=== PATIENT | male | born 1970 | race Caucasian/White ===

== ENCOUNTER 2019-02-27 18:06 | Observation (INO) ==
[2019-02-27] MEDS ORDERED: ASPIRIN CHEW 324 MG PO STA (18:38)
[2019-02-27 18:58] LABS: Basophils # (auto) 0.02 K/uL (0-0.2); Basophils % (auto) 0.3 %; Eosinophils # (auto) 0.06 K/uL (0-0.5); Eosinophils % (auto) 0.8 %; Hemoglobin 15.1 g/dL (14.0-18.0); Immature Granulocytes # (auto) 0.02 K/uL (0.00-0.02); Immature Granulocytes % (auto) 0.3 %; Lymphocytes % (auto) 19.6 %; Mean Corpuscular Hgb Conc 36.8 g/dL (32-36); Mean Corpuscular Volume 86.1 fL (80-100); Mean Platelet Volume 8.8 fL (7.4-10.4); Monocytes # (auto) 0.73 K/uL (0.11-0.59); Monocytes % (auto) 10.2 %; Neutrophils # (auto) 4.92 K/uL (1.4-6.5); Neutrophils % (auto) 68.8 %; Platelet Count 159 K/uL (130-400); RDW Standard Deviation 41.1 fL (36.4-46.3); Red Blood Count 4.76 M/uL (4.7-6.1); White Blood Count 7.15 K/uL (4.8-10.8)
[2019-02-27] MEDS ORDERED: ASPIRIN 81 MG CHEW ONE (19:03)
--- NOTE | 2019-02-27 19:03 | XRay Report ---
XR chest 1V portable HISTORY: 48 years-old Male cp acute atypical chest pain COMPARISON: Chest radiograph 02/28/2016 TECHNIQUE: Portable AP view the chest FINDINGS: Cardiac silhouette is enlarged, unchanged. No pneumothorax, pleural effusion, focal airspace consolid ation or overt pulmonary edema. Bones of the chest appear grossly intact. Mild spondylitic spurring o f the thoracic spine. IMPRESSION: Cardiomegaly without acute process. The above report was generated using voice recognition software. It may contain grammatical, syntax o r spelling errors. Electronically signed by: Walker Deleon M.D. 02/27/2019 7:02 PM
[2019-02-27 19:25] LABS: Alanine Aminotransferase 43 U/L (12-78); Albumin Level 3.9 gm/dl (3.4-5.0); Aspartate Aminotransferase 38 U/L (15-37); BUN Creatinine Ratio 13.6 (10-20); Blood Urea Nitrogen 13 mg/dl (7-18); Calcium 9.3 mg/dl (8.5-10.1); Carbon Dioxide 29 mmol/L (21-32); Chloride 104 mmol/L (98-107); Creatinine Clr Calc Pharmacy 118.1 ml/min; Est GFR (African American) 106.7; Est GFR (Non-African American) 92.1; Glucose 101 mg/dl (70-99); Potassium 3.8 mmol/L (3.5-5.1); Sodium 138 mmol/L (136-145)
[2019-02-27 19:30] LABS: Albumin Globulin Ratio 1.1 (0.9-2); Alkaline Phosphatase 87 U/L (45-117); Bilirubin,Total 0.4 mg/dl (0.2-1); Globulin 3.7 gm/dl (2.5-4.0); Total Protein 7.6 gm/dl (6.4-8.2); Troponin I < 0.015 ng/ml (0-0.045)
[2019-02-27 19:33] LABS: Appearance Urine Clear (Clear); Bacteria Urine Automated Negative (Negative); Bilirubin Urine Negative (Negative); Blood Urine 1+ (Negative); Cast Urine Automated 0 /lpf (0-5); Color Urine Yellow; Glucose Urine UA Negative (Negative); Ketones Urine Negative (Negative); Leukocyte Esterase Urine Negative (Negative); Nitrite Urine Negative (Negative); Protein Urine Negative (Negative); RBC Urine Automated 0-4 /hpf (0-4); Urobilinogen Urine Negative (Negative)
[2019-02-27] MEDS ORDERED: ACETAMINOPHEN 325 MG TAB PO PRN (22:28)
[2019-02-27] MEDS ORDERED: NITROGLYCERIN SL 0.4 MG/TAB TAB SL PRN (22:28)
[2019-02-27] MEDS ORDERED: ONDANSETRON INJ 2 MG/ML 2 ML VIAL IV PRN (22:28)
[2019-02-27] MEDS ORDERED: MoRPHine SULFATE 2 MG/ML CARP IV PRN (22:28)
--- NOTE | 2019-02-27 23:26 | History and Physical Report ---
DATE OF ADMISSION: 02/27/2019 CHIEF COMPLAINT: Chest pain. HISTORY OF PRESENT ILLNESS: A 48-year-old male with past medical history significant for morbid obesity, history of cellulitis in lower extremities, presents with chest pain. The patient states this pain has been going on for the last few weeks on and off, but lately has become more constant and dull aching pain in the central chest, not sure if this is radiating or not, because the pain seems to be in different places. It is more when he does some exertion but not with ambulation. Denies any headache or dizziness. No nausea. No symptoms of short of breath. He has some cough with some yellowish phlegm attributes it to his sinuses. No blurred visions. Has some sore throat from his postnasal drip. Appetite is okay. No difficulty swallowing. No abdominal pain. Normal bowel and bladder movements. No hematuria or burning micturition. No black stools. No swelling in the legs. Currently, resting comfortable and hemodynamically stable. Patient has family history significant for father and maternal grandfather had heart disease. ALLERGIES: No known drug allergies. PAST MEDICAL HISTORY: As mentioned above. PAST SURGICAL HISTORY: Bilateral carpal tunnel surgery. MEDICATIONS: Multivitamins. FAMILY HISTORY: Significant for mother had uterine cancer. Father had diabetes and heart disorder. Maternal grandfather has heart disorder. SOCIAL HISTORY: Never smoked. No alcohol use, no drug use. and lives with his and son. REVIEW OF SYMPTOMS: As per HPI. Rest of review of systems negative. PHYSICAL EXAMINATION: GENERAL: The patient is morbidly obese, not in acute distress. VITAL SIGNS: Temperature 37.1, pulse 84, respiratory rate 14, blood pressure 150/90, oxygen 93% room air. HEENT: No pallor, no icterus. Pupils equal, round, and reactive to light. NECK: No JVD, no neck masses, no carotid bruits. CARDIOVASCULAR: S1, S2 heard, regular rate and rhythm, no murmur, no gallop. RESPIRATORY SYSTEM: Normal AP diameter. No accessory muscle use. No wheezing, no crackles. ABDOMEN: Soft, bowel sounds present. Nontender. No distention. CENTRAL NERVOUS SYSTEM: Cranial nerves II-XII grossly nonfocal. EXTREMITIES: No edema, no erythema. LABS: WBC 7.15, hemoglobin 15.1, hematocrit 41, platelets 159. Sodium 138, potassium 3.8, chloride 104, bicarbonate 29, BUN 13, creatinine 0.9, serum glucose 101, calcium 9.3, total bilirubin 0.4, AST 38, ALT 43, alkaline phosphatase 87. Troponin-I less than 0.015. Lipase 57. Urinalysis is positive for some trace blood. Chest x-ray, cardiomegaly without acute process. EKG: Normal sinus rhythm with rate of 80. No acute ST changes seen. ASSESSMENT AND PLAN: This is a 48-year-old male presents with chest pain. 1. Chest pain. Initial workup is negative. Going on for the last few weeks on and off, lattely more constant and somewhat worse with exertion. Risk factors of obesity, age and family history. We will observe in tele floor. Serial cardiac enzymes, echocardiogram. Patient will be n.p.o. after midnight. Cardiology consult, possible stress test in a.m. 2. Obesity, needs counseling. We will also follow fasting lipid profile. 3. Deep vein thrombosis prophylaxis, SCDs. DISPOSITION: Observation in med/surg tele. Level 1, full code. MTDD
--- NOTE | 2019-02-28 00:21 | Emergency Department Note ---
Entered by Patricia Shearer acting as a scribe for Aftab Grimm DO History of Present Illness General Chief complaint: Abdominal Pain Stated complaint: UPPER MID ABDOMINAL PAIN Source: patient History of Present Illness Onset (ago): week(s) (several) Location: chest (center) Pain Consistency: + intermittent and + other (worsening ) Maximum Pain Intensity: 4 Current Pain Intensity: 4 Quality: + aching and + dull Relieved By: + rest Exacerbated By: + movement Associated symptoms: + shortness of breath The patient is a 48 year old male who presents to the Emergency Room with comp laints of worsening intermittent center chest pain that began several weeks prior to arrival. The patient states that his pain is exacerbated with movement and relieved with rest. He describes this pain as a dull ache. The patient states that he has shortness of breath with this pain. The patient states that this episode of chest pain today began at about 0400, 14.5 hours prior to arrival, and has been mostly constant throughout the day today. He rates this pain at a 4/10. The patient states that he has a family history of heart problems. Home Medications Home Medications Medication Instructions Recorded Confirmed Type loratadine 10 mg PO DAILY 02/27/19 02/27/19 History multivitamin [Multiple Vitamins] 1 tab PO DAILY 02/27/19 02/27/19 History Allergies Allergy/AdvReac Type Severity Reaction Status Date / Time No Known Allergies Allergy Mild Unverified 02/27/19 21:22 Past Med/Surg History Medical History Obesity (Chronic) Sepsis Surgical History History of carpal tunnel surgery (Chronic) Social History Preferred Language: Bahamian Communication Ability: Effective Utilization Review Rn Required: No Beliefs That Will Affect Care: Yazdanism Yazdanism Beliefs: Spiritism Current Living Situation: Spouse Other Information That Helps Us Care for You: No Feels Safe at Home: Yes Safety Concerns: Feels Safe At This Time Smoking Status: Never smoker Do You Dip or Chew Tobacco: No Hx Alcohol Use: No Hx Substance Use: No Review of Systems See HPI for pertinent positives & negatives. and A total of 10 systems reviewed and were otherwise negative Physical Exam Vital Signs Vital Signs - 24 hr 02/27/19 18:10 02/27/19 19:13 02/27/19 19:30 Temperature 37.1 C Temperature Source Oral Sepsis Recent Fever Within 48 Hours No Sepsis New/Unexplained Change in Mental Status No Sepsis Action Taken by Nursing No Action Required Pulse Rate 91 H 84 85 Pulse Rate from SpO2 Sensor Respiratory Rate 18 12 12 Blood Pressure 134/87 140/84 133/90 Blood Pressure Mean 102 102 104 Pulse Oximetry 95 95 95 Oxygen Delivery Method Room Air Room Air 02/27/19 20:01 02/27/19 20:50 02/27/19 21:01 Temperature Temperature Source Sepsis Recent Fever Within 48 Hours Sepsis New/Unexplained Change in Mental Status Sepsis Action Taken by Nursing Pulse Rate 84 80 82 Pulse Rate from SpO2 Sensor 80 82 Respiratory Rate 14 17 13 Blood Pressure 150/90 H 131/85 143/89 H Blood Pressure Mean 110 100 107 Pulse Oximetry 93 95 94 Oxygen Delivery Method Room Air Room Air Room Air GENERAL: Obese. Sitting up in bed. Alert, well appearing, well nourished, no distress, non-toxic EYE EXAM: normal conjunctiva OROPHARYNX: no exudate, no erythema, lips, buccal mucosa, and tongue normal and mucous membranes are moist NECK: supple, no nuchal rigidity, no adenopathy, non-tender LUNGS: Clear to auscultation. Normal chest wall mechanics HEART: no murmurs, S1 normal and S2 normal ABDOMEN: abdomen soft, non-tender, normo-active bowel sounds, no masses, no rebound or guarding. BACK: Back is symmetrical on inspection and there is no deformity, no midline tenderness, no CVA tenderness. SKIN: no rashes and no bruising UPPER EXTREMITIES: upper extremities are grossly normal. LOWER EXTREMITIES: No pitting edema. Calves are equal bilaterally. NEURO EXAM: Normal sensorium, cranial nerves II-XII intact, normal speech, no weakness of arms, no weakness of legs. Course ED COURSE: Vital signs were reviewed and showed normal. The patients medical record was reviewed The above diagnostic studies were performed and reviewed. ED treatments and interventions as stated above. 1828: The patient was evaluated in room A10. A complete history and physical examination was performed. 1938: Upon reevaluation, the patient is doing well and is still chest pain free.I discussed my findings with the patient and he understands and agrees with the treatment plan. Based on the patients age, coexisting illnesses, exam and lab findings the decision to treat as an inpatient was made. The patient remained stable while under my care. 1943: [facility] for further evaluation. Administered Medications Discontinued Medications Aspirin (Aspirin) 324 mg PO NOW STA Stop: 02/27/19 18:39 Last Admin: 02/27/19 19:05 Dose: Not Given Documented by: [id number] Aspirin (Aspirin Chew) Confirm Administered Dose 324 mg .ROUTE .STK-MED ONE Stop: 02/27/19 19:04 Last Admin: 02/27/19 19:04 Dose: 324 mg Documented by: [id number] Medical Decision Making Differential Diagnosis Differential diagnosis: Etiologies such as cardiac ischemia, aortic dissection, pulmonary embolism, pneumonia, pneumothorax, musculoskeletal, infections, pericarditis, myocarditis, esophageal rupture, gastrointestinal, as well as others were entertained. Medical Records Attestation: I reviewed the patient's medical records. Home Medications Current Medication List: was personally reviewed by me Laboratory Data Attestation: I reviewed the patient's lab results. Result diagrams: 02/27/19 18:48 02/27/19 18:48 Lab Results 02/27/19 02/27/19 02/27/19 Range/Units 18:48 18:48 19:20 WBC 7.15 (4.8-10.8) K/uL RBC 4.76 (4.7-6.1) M/uL Hgb 15.1 (14.0-18.0) g/dL Hct 41.0 L (42-52) % MCV 86.1 (80-100) fL MCH 31.7 (25-34) pg MCHC 36.8 H (32-36) g/dL RDW Std Deviation 41.1 (36.4-46.3) fL RDW Coeff of Lara 13.0 (11.5-14.5) % Plt Count 159 (130-400) K/uL MPV 8.8 (7.4-10.4) fL Immature Gran % (Auto) 0.3 % Neut % (Auto) 68.8 % Lymph % (Auto) 19.6 % [place] % (Auto) 10.2 % Eos % (Auto) 0.8 % Baso % (Auto) 0.3 % Immature Gran # (Auto) 0.02 (0.00-0.02) K/uL Neut # (Auto) 4.92 (1.4-6.5) K/uL Lymph # (Auto) 1.40 (1.2-3.4) K/uL [place] # (Auto) 0.73 H (0.11-0.59) K/uL Eos # (Auto) 0.06 (0-0.5) K/uL Baso # (Auto) 0.02 (0-0.2) K/uL Sodium 138 (136-145) mmol/L Potassium 3.8 (3.5-5.1) mmol/L Chloride 104 (98-107) mmol/L Carbon Dioxide 29 (21-32) mmol/L Anion Gap 5.0 (3-11) BUN 13 (7-18) mg/dl Creatinine 0.98 (0.6-1.4) mg/dl Est Cr Clr Drug Dosing 118.1 ml/min Est GFR ( Amer) 106.7 Est GFR (Non-Af Amer) 92.1 BUN/Creatinine Ratio 13.6 (10-20) Glucose 101 H (70-99) mg/dl Calcium 9.3 (8.5-10.1) mg/dl Total Bilirubin 0.4 (0.2-1) mg/dl AST 38 H (15-37) U/L ALT 43 (12-78) U/L Alkaline Phosphatase 87 (45-117) U/L Troponin I < 0.015 (0-0.045) ng/ml Total Protein 7.6 (6.4-8.2) gm/dl Albumin 3.9 (3.4-5.0) gm/dl Globulin 3.7 (2.5-4.0) gm/dl Albumin/Globulin Ratio 1.1 (0.9-2) Lipase 57 L (73-393) U/L Urine Color Yellow Urine Appearance Clear (Clear) Urine pH 5.0 (4.5-7.5) Ur Specific [place] 1.020 (1.000-1.030) Urine Protein Negative (Negative) Urine Glucose (UA) Negative (Negative) Urine Ketones Negative (Negative) Urine Blood 1+ H (Negative) Urine Nitrite Negative (Negative) Urine Bilirubin Negative (Negative) Urine Urobilinogen Negative (Negative) Ur Leukocyte Esterase Negative (Negative) Urine WBC (Auto) 1-5 (0-5) /hpf Urine RBC (Auto) 0-4 (0-4) /hpf U Hyaline Cast (Auto) 0 (0-5) /lpf U Epithel Cells (Auto) 5-10 H (0-5) /lpf Urine Bacteria (Auto) Negative (Negative) Imaging Data Radiologist's Impression: Radiology results as stated below per my review and the radiologist's interpretation: XR chest 1V portable HISTORY: 48 years-old Male cp acute atypical chest pain COMPARISON: Chest radiograph 02/28/2016 TECHNIQUE: Portable AP view the chest FINDINGS: Cardiac silhouette is enlarged, unchanged. No pneumothorax, pleural effusion, focal airspace consolidation or overt pulmonary edema. Bones of the chest appear grossly intact. Mild spondylitic spurring of the thoracic spine. IMPRESSION: Cardiomegaly without acute process. The above report was generated using voice recognition software. It may contain grammatical, syntax or spelling errors. Electronically signed by: Walker Deleon M.D. 02/27/2019 7:02 PM ECG Data Attestation: I personally reviewed and interpreted this ECG as follows: Indication: chest pain Rate (beats per minute): 80 Rhythm: sinus rhythm Findings: + other (normal axis); no PVC Blood Pressure Blood Pressure Findings: Elevated blood pressure Blood Pressure Disposition: elevated BP felt to be situational MDM Narrative Patient is a 48-year-old male who presents the ER referred in by PCP for p recordial chest pain which is exertional in nature associated with some shortness of breath. Labs were obtained and showed no significant leukocytosis or anemia. BMP along with LFTs bilirubin troponin and lipase was unremarkable. UA was negative. Chest x-ray was unremarkable. Patient was given aspirin. EKG was nondiagnostic. Patient does have an extensive family history with father dying at 60 and both sides of grandparents having MIs. As he was seen by the PCP did discuss case with hospice for observation. Impression & Plan Precordial chest pain Discharge Plan Visit Data *Final* Discharge Date/Time: 02/27/19 21:58 Chief Complaint: Abdominal Pain Stated Complaint: UPPER MID ABDOMINAL PAIN ED Provider: Aftab Grimm Discharge Problem: Precordial chest pain Patient Disposition: Admitted As Inpatient Discharge Instructions Interventions: ED Discharge Assessment Last Done: 02/27/19 21:58 The scribe's documentation has been prepared under my direction and personally reviewed by me in its entirety. I confirm that the note above accurately reflects all work, treatment, procedures, and medical decision making performed by me.
[2019-02-28 06:07] LABS: Basophils # (auto) 0.02 K/uL (0-0.2); Basophils % (auto) 0.3 %; Eosinophils # (auto) 0.12 K/uL (0-0.5); Eosinophils % (auto) 1.7 %; Hematocrit (blood only) 40.8 % (42-52); Hemoglobin 14.3 g/dL (14.0-18.0); Immature Granulocytes # (auto) 0.01 K/uL (0.00-0.02); Immature Granulocytes % (auto) 0.1 %; Lymphocytes % (auto) 18.5 %; Mean Corpuscular Volume 87.9 fL (80-100); Monocytes % (auto) 12.8 %; Neutrophils # (auto) 4.68 K/uL (1.4-6.5); Neutrophils % (auto) 66.6 %; Platelet Count 156 K/uL (130-400); RDW Coefficient of Variation 13.1 % (11.5-14.5); RDW Standard Deviation 41.9 fL (36.4-46.3); Red Blood Count 4.64 M/uL (4.7-6.1); White Blood Count 7.03 K/uL (4.8-10.8)
[2019-02-28 06:35] LABS: Blood Urea Nitrogen 12 mg/dl (7-18); Calcium 9.5 mg/dl (8.5-10.1); Carbon Dioxide 29 mmol/L (21-32); Chloride 105 mmol/L (98-107); Creatinine Clr Calc Pharmacy 112.8 ml/min; Est GFR (African American) 101.7; Est GFR (Non-African American) 87.7; Glucose 128 mg/dl (70-99); Potassium 3.9 mmol/L (3.5-5.1); Sodium 140 mmol/L (136-145)
[2019-02-28 06:41] LABS: Chol HDL Ratio 4; Cholesterol 110 mg/dl (0-200); HDL Cholesterol 25 mg/dl; LDL Cholesterol Calculated 31 mg/dl; Triglycerides 268 mg/dl (0-150); Troponin I < 0.015 ng/ml (0-0.045); VLDL Cholesterol 54 mg/dl
[2019-02-28] MEDS ORDERED: ASPIRIN 81 MG ECTAB PO SCH (09:00)
[2019-02-28] MEDS ORDERED: MULTIVITAMIN TAB PO SCH (09:00)
[2019-02-28] MEDS ORDERED: PERFLUTREN LIPID MICROSPHERE (DEFINITY) IV ONE (10:59)
--- NOTE | 2019-02-28 11:10 | Cardiology Consultation ---
Date of Consultation February 28, 2019 Assessment & Plan (1) Precordial chest pain: Atypical for angina. Cardiac enzymes EKGs normal. Echocardiogram with normal LV systolic function, no valvular dysfunction aortic root normal in size no pericardial effusion Stress echocardiography performed after above review: Patient exercised to 7 minutes and 10 seconds on a Shaan protocol and estimate met level 8.5 minutes and achieved 85% expected maximal heart without cardiac complaint. Heart rate blood pressure response normal Normal resting and stress EKG Normal resting and stress LV function Study negative for ischemia Symptoms noncardiac in origin (2) Obesity: Check TSH if not recently performed (3) History of carpal tunnel surgery: History of Present Illness Reason for Consultation: Chest pressure pain Requesting Physician: Dr. Hale Attending Physician: Hugh Hale MD History of Present Illness Patient is a 48-year-old male without prior cardiac history with underlying issues and including only obesity past lower extremity cellulitis and carpal tunnel disease. Patient was seen in the outpatient setting yesterday with symptoms of vague chest pressure discomfort lasting hours in duration. Not associated with dyspnea or specific exertional relationship. He denies prior history of myocardial infarction angina rheumatic fever scarlet fever renal or hepatic disease notes no history of TIA or stroke notes no acute weight loss or gain. Denies worsening edema. Is relatively sedentary about home. Takes a multivitamin is [id number] medication denies any significant pain medications or other therapies review of systems are otherwise negative Allergies Allergy/AdvReac Type Severity Reaction Status Date / Time No Known Allergies Allergy Mild Unverified 02/27/19 21:22 Home Medications Home Medications Medication Instructions Recorded Confirmed Type loratadine 10 mg PO DAILY 02/27/19 02/27/19 History multivitamin [Multiple Vitamins] 1 tab PO DAILY 02/27/19 02/27/19 History Patient History Medical History Obesity (Chronic) Sepsis Surgical History History of carpal tunnel surgery (Chronic) Social History Preferred Language: Andorran Communication Ability: Effective 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 Beliefs That Will Affect Care: Sikhism Sikhism Beliefs: Church Current Living Situation: Spouse Other Information That Helps Us Care for You: No Feels Safe at Home: Yes Safety Concerns: Feels Safe At This Time Smoking Status: Never smoker Do You Dip or Chew Tobacco: No Hx Alcohol Use: No Hx Substance Use: No Review of Systems Review of Systems: As per HPI Physical Exam Constitutional: WD/WN, vitals as above + obese Eyes: PERRL, conjunctivae normal, anicteric sclerae ENMT: external ear and nose normal, oropharynx normal Respiratory: Auscultation: + diminished lung sounds (Clear to auscultation) Cardiovascular: Rate/Rhythm: regular rate and regular rhythm Heart Sounds: normal S1 and normal S2; no gallop and no murmur Palpation: normal PMI Vessels: no JVD Extremities: no edema Gastrointestinal (Abdomen): normal bowel sounds, soft, nontender, no hepatosplenomegaly Musculoskeletal: no cyanosis or clubbing, extremities motor strength 5/5 Neurologic: PERRL, EOMI, accommodation nl, no face palsy, no dysarthria Flat affect with stoic personality Results & Data Vital Signs (Past 12 Hours) Vital Signs Temp Pulse Pulse Resp BP Pulse Ox 02/28/19 08:00 84 02/28/19 07:00 36.9 C 74 16 123/79 92 02/28/19 04:05 36.9 C 81 16 113/72 96 02/28/19 00:00 84 Laboratory Results Laboratory Results - last 24 hr 02/27/19 02/27/19 02/27/19 18:48 18:48 19:20 WBC 7.15 RBC 4.76 Hgb 15.1 Hct 41.0 L MCV 86.1 MCH 31.7 MCHC 36.8 H RDW Std Deviation 41.1 RDW Coeff of Lara 13.0 Plt Count 159 MPV 8.8 Immature Gran % (Auto) 0.3 Neut % (Auto) 68.8 Lymph % (Auto) 19.6 [place] % (Auto) 10.2 Eos % (Auto) 0.8 Baso % (Auto) 0.3 Immature Gran # (Auto) 0.02 Neut # (Auto) 4.92 Lymph # (Auto) 1.40 [place] # (Auto) 0.73 H Eos # (Auto) 0.06 Baso # (Auto) 0.02 Sodium 138 Potassium 3.8 Chloride 104 Carbon Dioxide 29 Anion Gap 5.0 BUN 13 Creatinine 0.98 Est Cr Clr Drug Dosing 118.1 Est GFR ( Amer) 106.7 Est GFR (Non-Af Amer) 92.1 BUN/Creatinine Ratio 13.6 Glucose 101 H Calcium 9.3 Magnesium Total Bilirubin 0.4 AST 38 H ALT 43 Alkaline Phosphatase 87 Troponin I < 0.015 Total Protein 7.6 Albumin 3.9 Globulin 3.7 Albumin/Globulin Ratio 1.1 Triglycerides Cholesterol LDL Cholesterol, Calc VLDL Cholesterol, Calc HDL Cholesterol Cholesterol/HDL Ratio Lipase 57 L Urine Color Yellow Urine Appearance Clear Urine pH 5.0 Ur Specific [place] 1.020 Urine Protein Negative Urine Glucose (UA) Negative Urine Ketones Negative Urine Blood 1+ H Urine Nitrite Negative Urine Bilirubin Negative Urine Urobilinogen Negative Ur Leukocyte Esterase Negative Urine WBC (Auto) 1-5 Urine RBC (Auto) 0-4 U Hyaline Cast (Auto) 0 U Epithel Cells (Auto) 5-10 H Urine Bacteria (Auto) Negative 02/27/19 02/28/19 02/28/19 23:24 05:50 05:50 WBC 7.03 RBC 4.64 L Hgb 14.3 Hct 40.8 L MCV 87.9 MCH 30.8 MCHC 35.0 RDW Std Deviation 41.9 RDW Coeff of Lara 13.1 Plt Count 156 MPV 9.0 Immature Gran % (Auto) 0.1 Neut % (Auto) 66.6 Lymph % (Auto) 18.5 [place] % (Auto) 12.8 Eos % (Auto) 1.7 Baso % (Auto) 0.3 Immature Gran # (Auto) 0.01 Neut # (Auto) 4.68 Lymph # (Auto) 1.30 [place] # (Auto) 0.90 H Eos # (Auto) 0.12 Baso # (Auto) 0.02 Sodium 140 Potassium 3.9 Chloride 105 Carbon Dioxide 29 Anion Gap 6.0 BUN 12 Creatinine 1.02 Est Cr Clr Drug Dosing 112.8 Est GFR ( Amer) 101.7 Est GFR (Non-Af Amer) 87.7 BUN/Creatinine Ratio 12.0 Glucose 128 H Calcium 9.5 Magnesium 2.0 Total Bilirubin AST ALT Alkaline Phosphatase Troponin I < 0.015 < 0.015 Total Protein Albumin Globulin Albumin/Globulin Ratio Triglycerides 268 H Cholesterol 110 LDL Cholesterol, Calc 31 VLDL Cholesterol, Calc 54 HDL Cholesterol 25 Cholesterol/HDL Ratio 4 Lipase Urine Color Urine Appearance Urine pH Ur Specific [place] Urine Protein Urine Glucose (UA) Urine Ketones Urine Blood Urine Nitrite Urine Bilirubin Urine Urobilinogen Ur Leukocyte Esterase Urine WBC (Auto) Urine RBC (Auto) U Hyaline Cast (Auto) U Epithel Cells (Auto) Urine Bacteria (Auto) Diagnostic Findings 28-FEB-2019 07:27:31 [facility] ROUTINE RETRIEVAL Normal sinus rhythm Normal ECG When compared with ECG of 27-FEB-2019 20:11, (unconfirmed) No significant change was found
[2019-02-28] MEDS ORDERED: PANTOprazole 40 MG TAB PO SCH (11:45)
--- NOTE | 2019-02-28 13:15 | Hospitalist Progress Note ---
Date of Service February 28, 2019 Assessment & Plan (1) GERD (gastroesophageal reflux disease): -discharge with pantoprazole daily -patient used to be taking proton pump inhibitors in the past and then stopped -patient has cardiac testing on this admission that did not find cardiac ischemia -patient describes the chest pain as midsternal near the gastroesophageal junction -patient has stable hemoglobin and less likely to be any bleeding duodenal ulcer. patient to follow up with primary care doctor Non Cardiac Chest pain -as per cardiology evaluation -echocardiogram with normal LV systolic function, no valvular dysfunction aortic root normal in size no pericardial effusion -Stress echocardiography performed after above review: Patient exercised to 7 minutes and 10 seconds on a Shaan protocol and estimate met level 8.5 minutes and achieved 85% expected maximal heart without cardiac complaint. Heart rate blood pressure response normal Normal resting and stress EKG Normal resting and stress LV function -Study negative for ischemia -Symptoms noncardiac in origin Obesity with BMI 41.8 -TSH normal -lipid panel reviewed and generally within normal normal parameters with mild elevations in cholesterol -would defer starting statins at this time; Patient should discuss with primary care doctor about weight loss strategies Discharge Diagnosis non cardiac chest pain, Gastroesophageal reflux disease, Obesity with BMI 41.8 Discharge to home with follow up 03/07/2019 9:20 AM Provider Prashant Looney PA-C Department [facility] Subjective patient had cardiac stress testing and did well. patient reports he does feel discomfort at midsternal near the gastroesophageal junction; reports he used to be taking proton pump inhibitors in the past and then stopped; patient denies acute blood loss. denies vomiting. denies headache or lightheadedness. his blood counts are stable. discharge plans discussed with patient and primary care doctor follow up Physical Exam Constitutional: WD/WN, vitals as above + obese Eyes: PERRL, conjunctivae normal, anicteric sclerae EOM intact bilaterally ENMT: external ear and nose normal, oropharynx normal Neck: trachea midline, no thyromegaly normal visual inspection Respiratory: normal respiratory effort, lungs clear to auscultation Cardiovascular: RRR, no murmur, no edema Gastrointestinal (Abdomen): normal bowel sounds, soft, nontender, no hepatosplenomegaly Musculoskeletal: no cyanosis or clubbing, extremities motor strength 5/5 Neurologic: PERRL, EOMI, accommodation nl, no face palsy, no dysarthria CN's II-XI intact bilaterally Psychiatric: A+Ox3, euthymic affect Results & Data Vital Signs (Past 12 Hours) Vital Signs Temp Pulse Pulse Resp BP Pulse Ox 02/28/19 11:30 37.2 C 98 H 18 131/84 92 02/28/19 08:00 84 02/28/19 07:00 36.9 C 74 16 123/79 92 02/28/19 04:05 36.9 C 81 16 113/72 96
--- NOTE | 2019-02-28 13:24 | Discharge Summary ---
Date of Service February 28, 2019 Admission HPI Per Admitting Provider CHIEF COMPLAINT: Chest pain. HISTORY OF PRESENT ILLNESS: A 48-year-old male with past medical history significant for morbid obesity, history of cellulitis in lower extremities, presents with chest pain. The patient states this pain has been going on for the last few weeks on and off, but lately has become more constant and dull aching pain in the central chest, not sure if this is radiating or not, because the pain seems to be in different places. It is more when he does some exertion but not with ambulation. Denies any headache or dizziness. No nausea. No symptoms of short of breath. He has some cough with some yellowish phlegm attributes it to his sinuses. No blurred visions. Has some sore throat from his postnasal drip. Appetite is okay. No difficulty swallowing. No abdominal pain. Normal bowel and bladder movements. No hematuria or burning micturition. No black stools. No swelling in the legs. Currently, resting comfortable and hemodynamically stable. Patient has family history significant for father and maternal grandfather had heart disease. ALLERGIES: No known drug allergies. PAST MEDICAL HISTORY: As mentioned above. PAST SURGICAL HISTORY: Bilateral carpal tunnel surgery. MEDICATIONS: Multivitamins. FAMILY HISTORY: Significant for mother had uterine cancer. Father had diabetes and heart disorder. Maternal grandfather has heart disorder. SOCIAL HISTORY: Never smoked. No alcohol use, no drug use. and lives with his and son. REVIEW OF SYMPTOMS: As per HPI. Rest of review of systems negative. Admission Exam Per Admitting Provider PHYSICAL EXAMINATION: GENERAL: The patient is morbidly obese, not in acute distress. VITAL SIGNS: Temperature 37.1, pulse 84, respiratory rate 14, blood pressure 150/90, oxygen 93% room air. HEENT: No pallor, no icterus. Pupils equal, round, and reactive to light. NECK: No JVD, no neck masses, no carotid bruits. CARDIOVASCULAR: S1, S2 heard, regular rate and rhythm, no murmur, no gallop. RESPIRATORY SYSTEM: Normal AP diameter. No accessory muscle use. No wheezing, no crackles. ABDOMEN: Soft, bowel sounds present. Nontender. No distention. CENTRAL NERVOUS SYSTEM: Cranial nerves II-XII grossly nonfocal. EXTREMITIES: No edema, no erythema. Principal Diagnosis non cardiac chest pain, Gastroesophageal reflux disease, Obesity with BMI 41.8 Discharge Exam Constitutional WD/WN, vitals as above + obese Eyes PERRL, conjunctivae normal, anicteric sclerae EOM intact bilaterally ENMT external ear and nose normal, oropharynx normal Neck trachea midline, no thyromegaly normal visual inspection Respiratory normal respiratory effort, lungs clear to auscultation Cardiovascular RRR, no murmur, no edema Gastrointestinal (Abdomen) normal bowel sounds, soft, nontender, no hepatosplenomegaly Musculoskeletal no cyanosis or clubbing, extremities motor strength 5/5 Neurologic PERRL, EOMI, accommodation nl, no face palsy, no dysarthria CN's II-XI intact bilaterally Psychiatric A+Ox3, euthymic affect Discharge Data Allergies Allergy/AdvReac Type Severity Reaction Status Date / Time No Known Allergies Allergy Mild Unverified 02/27/19 21:22 Consultations 02/27/19 20:07 ED Decision to Admit Stat 02/28/19 08:00 Consult Cardiology Routine Hospital Course (1) GERD (gastroesophageal reflux disease): -discharge with pantoprazole daily -patient used to be taking proton pump inhibitors in the past and then stopped -patient has cardiac testing on this admission that did not find cardiac ischemia -patient describes the chest pain as midsternal near the gastroesophageal junction -patient has stable hemoglobin and less likely to be any bleeding duodenal ulcer. patient to follow up with primary care doctor Non Cardiac Chest pain -as per cardiology evaluation -echocardiogram with normal LV systolic function, no valvular dysfunction aortic root normal in size no pericardial effusion -Stress echocardiography performed after above review: Patient exercised to 7 minutes and 10 seconds on a Shaan protocol and estimate met level 8.5 minutes and achieved 85% expected maximal heart without cardiac complaint. Heart rate blood pressure response normal Normal resting and stress EKG Normal resting and stress LV function -Study negative for ischemia -Symptoms noncardiac in origin Obesity with BMI 41.8 -TSH normal -lipid panel reviewed and generally within normal normal parameters with mild elevations in cholesterol -would defer starting statins at this time; Patient should discuss with primary care doctor about weight loss strategies Discharge Diagnosis non cardiac chest pain, Gastroesophageal reflux disease, Obesity with BMI 41.8 Discharge to home with follow up 03/07/2019 9:20 AM Provider Prashant Looney PA-C Department [facility] Total Time Total Time Spent Total Time Spent (In Minutes): 40 minutes Total Time Includes: Examination of the Patient, Discharge Planning, Medication Reconciliation and Communication With Other Providers Discharge Plan Discharge Items Patient Disposition: Home - Self-Care Reason For Visit: CHEST PAIN Discharge Diagnosis: non cardiac chest pain, Gastroesophageal reflux disease, Obesity with BMI 41.8 Condition: Good Discharge Goals: Improve disease control Activity: Resume your previous activity Non-emergency contact: Primary Care Provider Call non-emergency contact if: you have any medication questions Follow-up/Referrals: PCP,NO [Primary Care Provider] - Diet: Low Fat Addtl Provider Instructions: Discharge to home with follow up 03/07/2019 9:20 AM Provider Prashant Looney PA-C Department [facility] as per cardiology evaluation echocardiogram with normal LV systolic function, no valvular dysfunction aortic root normal in size no pericardial effusion Stress echocardiography performed after above review: Patient exercised to 7 minutes and 10 seconds on a Shaan protocol and estimate met level 8.5 minutes and achieved 85% expected maximal heart without cardiac complaint. Heart rate blood pressure response normal Normal resting and stress EKG Normal resting and stress LV function Study negative for ischemia Symptoms noncardiac in origin -Patient should take pantoprazole 40 mg daily in case chest pain is from gastric reflux symptoms -Patient should discuss with primary care doctor about weight loss strategies Prescriptions: New pantoprazole 40 mg Tablet,Delayed Release (Dr/Ec) 40 mg PO QAM 30 Days Qty: 30 RF: 0 Continued multivitamin [Multiple Vitamins] Tablet 1 tab PO DAILY RF: 0 Discontinued loratadine 10 mg Tablet 10 mg PO DAILY RF: 0 Stand-Alone Forms: Call Back Authorization, [facility] Discharge Orders: Discharge Order (Routine); Ordered 02/28/19 Ordered By: Hugh Hale Admission Data Admit Date/Time: 02/27/19 21:27 Attending Provider: Hugh Hale Admit Provider: Arnold Chi Primary Care Provider: PCP,NO Other Providers: Arnold Chi ; Wade Muñoz ; Axel Thurston ; Raleigh Luis ; Dylan Duarte ; Mykel Asencio ; [place] ; Kady Soto ; Rosemarie Luis Service: Telemetry Medical
== END 2019-02-28 14:19 | disposition home or self-care (01) ==
LOC: 2N 18:06 → ED 18:06 → 2N 21:58

== ENCOUNTER 2020-02-09 04:42 | Inpatient (IN) ==
[2020-02-09] MEDS ORDERED: SODIUM CHLORIDE 0.9% 1000ML 1,000 ML IV ONE (05:05)
[2020-02-09] MEDS ORDERED: ONDANSETRON INJ 2 MG/ML 2 ML VIAL IV STA (05:05)
[2020-02-09] MEDS ORDERED: KETOROLAC 30 MG/ML VIAL IV STA (05:05)
--- NOTE | 2020-02-09 05:12 | Emergency Department Note ---
History of Present Illness General Chief complaint: Kidney Stone Stated complaint: KIDNEY STONE Time Seen by Provider: 02/09/20 04:53 Source: patient Mode of arrival: ambulatory Limitations: no limitations History of Present Illness Maximum Pain Intensity: 9 This patient is a 49-year-old male who presents to the emergency department for evaluation of right flank pain. Patient states symptoms have been ongoing for 3 days intermittently. He describes this as a sharp pain on the right side. Pain has been more constant over the past 4 hours. He has had associated nausea/vomiting and belching. He has tried Tylenol and hydrocodone without relief. He reports a history of kidney stones and states this feels similar. He does report that at times, he has been evaluated for kidney stones but none are found. He denies any urinary symptoms, changes in bowel movements or fevers. He reports the last time he had a confirmed stone was several years ago. He otherwise reports a history of GERD but denies other medical problems. Home Medications Home Medications Medication Instructions Recorded Confirmed Type pantoprazole 20 mg PO QAM 07/15/19 02/09/20 History glucosamine sulfate [Glucosamine] 500 mg PO DAILY 02/09/20 02/09/20 History multivitamin with minerals [Men's 1 tab PO DAILY 02/09/20 02/09/20 History One Daily] Allergies Allergy/AdvReac Type Severity Reaction Status Date / Time No Known Allergies Allergy Mild Unverified 02/09/20 05:20 Past Med/Surg History Medical History GERD (gastroesophageal reflux disease) History of kidney stones Obesity (Chronic) Sepsis Surgical History History of carpal tunnel surgery (Chronic) Social History Preferred Language: Mongolian Communication Ability: Effective Parts Clerk Required: No Beliefs That Will Affect Care: Moravian Moravian Beliefs: Yazidi Current Living Situation: Spouse Feels Safe at Home: Yes Smoking Status: Never smoker Hx Alcohol Use: No Hx Substance Use: No Review of Systems A total of 10 systems reviewed and were otherwise negative Physical Exam Vital Signs Vital Signs - 24 hr 02/09/20 04:49 02/09/20 06:23 02/09/20 07:19 Temperature 36.4 C L Temperature Source Oral Pulse Rate 75 Pulse Rate [Finger] 81 78 Pulse Rhythm Regular Respiratory Rate 20 18 20 Respiratory Effort / Characteristics Non-Labored Spontaneous Non-Labored Spontaneous Respiratory Depth Normal Normal Normal Respiratory Pattern Regular Blood Pressure 153/100 H Blood Pressure [Left Arm] 152/85 H 128/71 Blood Pressure Mean 117 Blood Pressure Mean [Left Arm] 107 90 Blood Pressure Position [Left Arm] Lying Pulse Oximetry 96 95 96 Oxygen Delivery Method Room Air Room Air Room Air Sepsis Recent Fever Within 48 Hours No Sepsis New/Unexplained Change in Mental Status No Sepsis Action Taken by Nursing No Action Required VITALS: Vitals are noted on the nurse's note and reviewed by myself. Vital signs stable. GENERAL: This is a 49-year-old male, in no acute distress, well-developed well- nourished. SKIN: The skin was without rashes. EARS: External auditory canals clear, tympanic membranes pearly phillips without erythema or effusion bilaterally. EYES: Pupils equal round and reactive to light and accommodation. MOUTH: Mucous membranes moist. Tonsils are not enlarged. Pharynx without erythema or exudate. NECK: Supple without nuchal rigidity. No lymphadenopathy. HEART: Regular rate and rhythm without murmurs gallops or rubs. LUNGS: Clear to auscultation bilaterally without wheezes, rales or rhonchi. No retractions or accessory muscle use. ABDOMEN: Positive bowel sounds x 4. Soft, mild tenderness to palpation in the right lower quadrant and right mid abdomen. No CVA tenderness. No guarding or rebound tenderness. NEURO: Patient was alert and oriented to person place and time. Course Reevaluation(s) Reevaluation #1: Patient was reevaluated and findings discussed. He is feeling much better at this time. He is agreeable to admission. Consultations Consultation #1: Dr. Robertson [facility] hospitalist Administered Medications Discontinued Medications Sodium Chloride (Nss 1000ml) 1,000 mls @ 999 mls/hr IV .Q1H1M ONE Stop: 02/09/20 06:05 Last Infusion: 02/09/20 06:25 Dose: 0 mls/hr Documented by: [id number] Admin: 02/09/20 05:13 Dose: 999 mls/hr Documented by: [id number] Ceftriaxone Sodium (Rocephin) 2,000 mg in 70 mls @ 140 mls/hr IV NOW STA Stop: 02/09/20 06:28 Last Infusion: 02/09/20 06:57 Dose: 0 mls/hr Documented by: [id number] Admin: 02/09/20 06:25 Dose: 140 mls/hr Documented by: [id number] Ketorolac Tromethamine (Toradol) 30 mg IV NOW STA Stop: 02/09/20 05:06 Last Admin: 02/09/20 05:13 Dose: 30 mg Documented by: [id number] Ondansetron HCl (Zofran) 4 mg IV NOW STA Stop: 02/09/20 05:06 Last Admin: 02/09/20 05:13 Dose: 4 mg Documented by: [id number] Medical Decision Making Differential Diagnosis Differential diagnosis includes renal calculus, pyelonephritis, musculoskeletal pain, ruptured AAA, aortic dissection, diverticulitis, perforated viscus, bowel obstruction, biliary pathology, pancreatitis, PE, pneumonia, pneumothorax, trauma, herpes zoster, malignancy, among others. Home Medications Current Medication List: was personally reviewed by me Laboratory Data Attestation: I reviewed the patient's lab results. Result diagrams: 02/09/20 05:13 02/09/20 05:13 Lab Results 02/09/20 02/09/20 02/09/20 Range/Units 05:13 05:13 05:13 WBC 7.36 (4.8-10.8) K/uL RBC 5.05 (4.7-6.1) M/uL Hgb 15.5 (14.0-18.0) g/dL Hct 44.6 (42-52) % MCV 88.3 (80-100) fL MCH 30.7 (25-34) pg MCHC 34.8 (32-36) g/dL RDW Std Deviation 40.4 (36.4-46.3) fL RDW Coeff of Lara 12.8 (11.5-14.5) % Plt Count 143 (130-400) K/uL MPV 8.8 (7.4-10.4) fL Immature Gran % (Auto) 0.3 % Neut % (Auto) 72.5 % Lymph % (Auto) 13.9 % [place] % (Auto) 11.3 % Eos % (Auto) 1.9 % Baso % (Auto) 0.1 % Immature Gran # (Auto) 0.02 (0.00-0.02) K/uL Neut # (Auto) 5.34 (1.4-6.5) K/uL Lymph # (Auto) 1.02 L (1.2-3.4) K/uL [place] # (Auto) 0.83 H (0.11-0.59) K/uL Eos # (Auto) 0.14 (0-0.5) K/uL Baso # (Auto) 0.01 (0-0.2) K/uL Sodium 138 (136-145) mmol/L Potassium 4.0 (3.5-5.1) mmol/L Chloride 107 (98-107) mmol/L Carbon Dioxide 25 (21-32) mmol/L Anion Gap 6.0 (3-11) BUN 17 (7-18) mg/dl Creatinine 1.18 (0.6-1.4) mg/dl Est Cr Clr Drug Dosing 101.6 ml/min Est GFR ( Amer) 84.7 Est GFR (Non-Af Amer) 73.0 BUN/Creatinine Ratio 14.7 (10-20) Glucose 252 H (70-99) mg/dl Calcium 9.0 (8.5-10.1) mg/dl Total Bilirubin 0.4 (0.2-1) mg/dl AST 44 H (15-37) U/L ALT 80 H (12-78) U/L Alkaline Phosphatase 94 (45-117) U/L Total Protein 7.5 (6.4-8.2) gm/dl Albumin 3.9 (3.4-5.0) gm/dl Globulin 3.6 (2.5-4.0) gm/dl Albumin/Globulin Ratio 1.1 (0.9-2) Urine Color Yellow Urine Appearance Clear (Clear) Urine pH 5.0 (4.5-7.5) Ur Specific [place] >= 1.030 (1.000-1.030) Urine Protein Trace H (Negative) Urine Glucose (UA) Trace H (Negative) Urine Ketones Trace H (Negative) Urine Blood 1+ H (Negative) Urine Nitrite Negative (Negative) Urine Bilirubin Negative (Negative) Urine Urobilinogen Negative (Negative) Ur Leukocyte Esterase Negative (Negative) Urine RBC 5-10 H (0-4) /hpf Urine WBC 0-5 (0-5) /hpf Ur Epithelial Cells 20-30 H (0-5) /lpf Calcium Oxalate Crystal Present A (None Prsent) Urine Bacteria 1+ H (Negative) Hyaline Casts 0-5 (0-5) /lpf Urine Mucus Present A (None Prsent) Imaging Data Attestation: I personally reviewed and interpreted this imaging study as follows: Radiologist's Impression: CT ABDOMEN & PELVIS Without Contrast: There is a 9 mm obstructing stone at the right UPJ which causes mild right hydronephrosis and perinephric fat stranding. Few additional nonobstructing stones within the kidneys bilaterally. Hepatic steatosis. Hepatomegaly. Left adrenal nodule measuring 3.9 cm. There are 2 right adrenal nodules measuring 3.1 cm and 3.4 cm. All of these are incompletely characterized. No suspicious features. Consider multiphase CT or MRI for characterization. Radiologist: Yamil Garcia MD Blood Pressure Blood Pressure Findings: Normal blood pressure Blood Pressure Disposition: did not require urgent referral MDM Narrative The patient is a 49-year-old male who presents today complaining of right flank pain. Labs revealed no leukocytosis, anemia or concerning electrolyte abnormalities. Patient's glucose elevated at 252, no history of diabetes. CT of the abdomen/pelvis shows a 9 mm obstructing stone at the right UPJ. Patient is unlikely to pass this without intervention. He does have hydronephrosis and perinephric stranding as well as bacteria in the urine concerning for possible infection. Patient was given a dose of ceftriaxone and [facility] to evaluate the patient for further care. Impression & Plan Calculus of proximal right ureter, Hydronephrosis Discharge Plan Visit Data Chief Complaint: Kidney Stone Stated Complaint: KIDNEY STONE ED Provider: Radha Luna ED Midlevel Provider: Kavitha Oakes Discharge Problem: Calculus of proximal right ureter, Hydronephrosis Discharge Instructions Interventions: ED Discharge Assessment Last Done: 02/09/20 07:25 Forms Stand Alone Forms: My [facility] Prescriptions Prescriptions: No Action pantoprazole 20 mg Tablet,Delayed Release (Dr/Ec) 20 mg PO QAM RF: 0 multivitamin with minerals [Men's One Daily] Tablet 1 tab PO DAILY RF: 0 glucosamine sulfate [Glucosamine] 500 mg Tablet 500 mg PO DAILY RF: 0 Referrals Referrals: PCP,NO [Primary Care Provider] - Discharge Problem: Hydronephrosis Qualifiers: Hydronephrosis type: with renal calculous obstruction Qualified Code(s): N13.2 - Hydronephrosis with renal and ureteral calculous obstruction
[2020-02-09 05:22] LABS: Basophils # (auto) 0.01 K/uL (0-0.2); Basophils % (auto) 0.1 %; Eosinophils # (auto) 0.14 K/uL (0-0.5); Eosinophils % (auto) 1.9 %; Hematocrit (blood only) 44.6 % (42-52); Hemoglobin 15.5 g/dL (14.0-18.0); Immature Granulocytes # (auto) 0.02 K/uL (0.00-0.02); Immature Granulocytes % (auto) 0.3 %; Lymphocytes # (auto) 1.02 K/uL (1.2-3.4); Lymphocytes % (auto) 13.9 %; Mean Corpuscular Hemoglobin 30.7 pg (25-34); Mean Corpuscular Hgb Conc 34.8 g/dL (32-36); Mean Corpuscular Volume 88.3 fL (80-100); Mean Platelet Volume 8.8 fL (7.4-10.4); Monocytes # (auto) 0.83 K/uL (0.11-0.59); Monocytes % (auto) 11.3 %; Neutrophils # (auto) 5.34 K/uL (1.4-6.5); Neutrophils % (auto) 72.5 %; Platelet Count 143 K/uL (130-400); RDW Coefficient of Variation 12.8 % (11.5-14.5); RDW Standard Deviation 40.4 fL (36.4-46.3); Red Blood Count 5.05 M/uL (4.7-6.1); White Blood Count 7.36 K/uL (4.8-10.8)
[2020-02-09 05:23] LABS: Appearance Urine Clear (Clear); Bilirubin Urine Negative (Negative); Blood Urine 1+ (Negative); Color Urine Yellow; Glucose Urine UA Trace (Negative); Ketones Urine Trace (Negative); Leukocyte Esterase Urine Negative (Negative); Nitrite Urine Negative (Negative); Protein Urine Trace (Negative); Specific Gravity Urine >= 1.030 (1.000-1.030); Urobilinogen Urine Negative (Negative)
[2020-02-09 05:34] LABS: Epithelial Cell Urine 20-30 /lpf (0-5); Hyaline Casts Urine 0-5 /lpf (0-5)
[2020-02-09 05:35] LABS: Bacteria Urine 1+ (Negative); Calcium Oxalate Crystals Urine Present (None Prsent); Mucus Urine Present (None Prsent); WBC Urine 0-5 /hpf (0-5)
[2020-02-09 05:47] LABS: Albumin Globulin Ratio 1.1 (0.9-2); Albumin Level 3.9 gm/dl (3.4-5.0); BUN Creatinine Ratio 14.7 (10-20); Bilirubin,Total 0.4 mg/dl (0.2-1); Creatinine Clr Calc Pharmacy 101.6 ml/min; Est GFR (African American) 84.7; Globulin 3.6 gm/dl (2.5-4.0); Total Protein 7.5 gm/dl (6.4-8.2)
[2020-02-09] MEDS ORDERED: cefTRIAXone SODIUM 2,000 MG/70 ML BAG IV STA (05:59)
--- NOTE | 2020-02-09 06:21 | History & Physical Report ---
Date of Service February 09, 2020 Assessment & Plan (1) Hydronephrosis with renal calculous obstruction: Wade Torres is a 49yo M with Pmhx of GERD and renal stones who presents with 3 days of increasing R flank pain which feels similar to kidney stones he has had in the past. He has adrenal nodules noted on CT exam. Right obstructing nephrolithiasis at UPJ with hydronephrosis CT abdomen/pelvis shows 9 mm obstructing stone at the right UPJ which causes mild right hydronephrosis and perinephric fat stranding. Few additional nonobstructing stones within the kidneys bilaterally. Patient received Toradol on admission to ED with good pain relief Flomax 0.4 mg, NSS 125 cc/h Urology consulted for evaluation for cystoscopy/stent UA potentially infected appearing, UC pending Rocephin 2 g given empirically, 1 g daily added CMP daily Creatinine at normal baseline Zofran 4 mg IV every 4 hours PRN for nausea Adrenal incidentaloma Left adrenal nodule measuring 3.9 cm. There are 2 right adrenal nodules measuring 3.1 cm and 3.4 cm. All of these are incompletely characterized. - Patient without clinical symptoms of pheo per history, obese but without cushionoid facies/features MR with contrast ordered for characterization Hyperglycemia with hepatic steatosis/hepatomegaly appreciated. DDx includes BENITEZ - Strong fhx of cardiac disease and diabetes A1c pending Lipid panel pending Lantus weight-based, SSI ordered. Glucose checks AC/at bedtime Mild transaminitis, CMP daily Hepatitis profile ordered GERD Patient reports he has intermittent pain in his low center sternum resolved with antacids. Denies any chest pain at time of assessment. Continue pantoprazole daily FEN GI: N.p.o. pending urology eval, NSS as above DVT prophylaxis: SCDs Disposition: Med/surge CODE STATUS: Full code (2) GERD (gastroesophageal reflux disease): (3) Precordial chest pain: (4) Obesity: History of Present Illness Primary Care Provider: NO PCP Wade Torres is a 49yo M with Pmhx of GERD and renal stones who presents with 3 days of increasing R flank pain which feels similar to kidney stones he has had in the past. Wade reports that about 3 days ago he started to have right flank pain without fevers or chills which felt similar to kidney stones he has had in the past. His pain initially improved with Tylenol, hydrocodone but at approximately 1:00 this morning he developed persistent increasing pain which did not improve and caused him to present to the emergency department. He denies dysuria or urinary symptoms. He has not noticed blood in his urine, and has not had difficulty emptying his bladder. He has not had fever, chills, night sweats, or abdominal pain. He endorses nausea and a couple episodes of small-volume emesis without blood or bile. Denies diarrhea or constipation. He denies chest pain, chest pressure, palpitations, diaphoresis or fluctuations in blood pressure. Medical history: GERD, kidney stones, no history of diabetes Medications: Omeprazole Medication allergies: No known allergies Surgical history: Reviewed Social history: Lives with his and son. Denies history of tobacco, alcohol, or recreational drug use. Family history: Reviewed in EMR. Of note family history of diabetes in his father and maternal grandfather, history of AL in his father and uncle around age 60. CODE STATUS: Full code CT stat rad report as below: CT ABDOMEN & PELVIS Without Contrast: There is a 9 mm obstructing stone at the right UPJ which causes mild right hydronephrosis and perinephric fat stranding. Few additional nonobstructing stones within the kidneys bilaterally. Hepatic steatosis. Hepatomegaly. Left adrenal nodule measuring 3.9 cm. There are 2 right adrenal nodules measuring 3.1 cm and 3.4 cm. All of these are incompletely characterized. No suspicious features. Consider multiphase CT or MRI for characterization. Allergies Allergy/AdvReac Type Severity Reaction Status Date / Time No Known Allergies Allergy Mild Unverified 02/09/20 05:20 Home Medications Home Medications Medication Instructions Recorded Confirmed Type pantoprazole 20 mg PO QAM 07/15/19 02/09/20 History glucosamine sulfate [Glucosamine] 500 mg PO DAILY 02/09/20 02/09/20 History multivitamin with minerals [Men's 1 tab PO DAILY 02/09/20 02/09/20 History One Daily] Past Med/Surg History Medical History GERD (gastroesophageal reflux disease) History of kidney stones Obesity (Chronic) Sepsis Surgical History History of carpal tunnel surgery (Chronic) Social History Preferred Language: Estonian Communication Ability: Effective Safety Belt Installer Required: No Beliefs That Will Affect Care: None Current Living Situation: Spouse and Family Feels Safe at Home: Yes Safety Concerns: Feels Safe At This Time Smoking Status: Never smoker Do You Dip or Chew Tobacco: No ; Second Hand Exposure: No ; Hx Alcohol Use: No Hx Substance Use: No Review of Systems Review of Systems: Constitutional: Denies fever, chills, malaise, weight change Eyes: Denies vision change ENT: Denies ear pain, sore throat, sinus pain Cardiovascular: Denies Chest pain, chest pressure, palpitations, extremity swelling. Endorses intermittent heartburn for which he takes omeprazole. Respiratory: Denies shortness of breath, cough, sputum production, difficulty breathing Gastrointestinal: See HPI Genitourinary: Denies pain with urination, urinary urgency, urinary frequency Musculoskeletal: Denies weakness, muscle aches/pain, joint aches/pain Integumentary:Denies rash, lesions, bruising Neurological: Denies headache, numbness, tingling, focal weakness Physical Exam Physical Exam: General: A&Ox3. NAD. Cooperative. Flat affect. Skin warm and dry. HEENT: Atraumatic, normocephalic. Equals equal and responsive to light and accommodation. Mucous membranes moist. Pulm: CTAB A&P. -wheezes, -rales, -rhonchi. Symmetrical chest rise. No increase work of breathing. No respiratory distress. Cardiac: RRR, -mrg. Radial pulses intact and symmetrical. Abdominal: Obese, nontender, nondistended, soft. BS present. No CVA tenderness. Extremities: Moves all extremities equally. Sensation intact to soft touch in fingers and toes. RUE: flexion/extension/internal rotation/external rotation, elbow flexion/extension, finger flexion/extension, interior decorator strength, interosseous 5/5 LUE: Shoulder flexion/extension/internal rotation/external rotation, elbow flexion/extension, finger flexion/extension, interior decorator strength, interosseous 5/5 RLE: Hip flexion, knee flexion/extension, ankle plantar flexion/dorsiflexion 5/5 LLE: Hip flexion, knee flexion/extension, ankle plantar flexion/dorsiflexion 5/5 Results & Data Results & Data ([facility]) Vital Signs (Past 12 Hours) Vital Signs Temp Pulse Resp BP Pulse Ox 02/09/20 04:49 36.4 C L 75 20 153/100 H 96 Supervising Physician Co-Signing Physician Notes Attending addendum: I have physically seen this patient, have supervised the medical residents activities, and agree with the H&P unless as otherwise noted. Assessment and Plan: 9 mm right UPJ obstructing stone/right hydronephrosis/perinephric fat stranding- Flomax 0.4 mg p.o. daily NSS at 125 mL's per hour. Follow urine culture and sensitivity. Ceftriaxone 2 g IV daily Zofran 4 mg IV every 6 hours PRN Famotidine 20 mg IV every 12 hours Consult urology Bilateral adrenal nodules- 3.9 cm left. 3.1 cm and 3.4 cm on the right. Asymptomatic this time. order MRI of abdomen and pelvis to further assess. Remainder of orders and notations as noted. Resident Activity Tracking Resident Involvement: Resident Care Provided Care Provided: Adult Hospital Medicine
[2020-02-09] MEDS ORDERED: DEXTROSE 50% 50 ML SYRINGE IV PRN (07:58)
[2020-02-09] MEDS ORDERED: GLUCAGON FOR INJ 1 MG VIAL SQ PRN (07:58)
[2020-02-09] MEDS ORDERED: INSULIN ASPART 100 UNITS/ML 3 ML PEN SC SCH ×2 (07:58→12:00)
[2020-02-09] MEDS ORDERED: ONDANSETRON INJ 2 MG/ML 2 ML VIAL IV PRN (07:58)
[2020-02-09] MEDS ORDERED: MoRPHine SULFATE 2 MG/ML CARP IV PRN ×2 (07:58)
[2020-02-09] MEDS ORDERED: CARBOHYDRATES FOR HYPOGLYCEMIA PO PRN (07:58)
[2020-02-09] MEDS ORDERED: ACETAMINOPHEN 325 MG TAB PO PRN (07:58)
[2020-02-09] MEDS ORDERED: GLUCOSE 40% GEL 15 GM TUBE PO PRN (07:58)
[2020-02-09] MEDS ORDERED: GLUCOSE 10 TABS/TUBE PO PRN (07:58)
[2020-02-09] MEDS: SODIUM CHLORIDE 0.9% 1000ML 1,000 ML IV SCH ×2 (08:23→17:56)
--- NOTE | 2020-02-09 08:24 | CT Scan Report ---
ABDOMEN AND PELVIS CT WITHOUT CONTRAST CT DOSE: 1480.85 mGy.cm HISTORY: right flank pain, hx stones TECHNIQUE: Multiaxial CT images of the abdomen and pelvis were performed without contrast. A dose lo wering technique was utilized adhering to the principles of ALARA. COMPARISON STUDY: Abdomen and pelvis CT 02/21/2017. FINDINGS: The lung bases are clear. No pneumoperitoneum. No pneumatosis. No suspicious lytic are ricardo tic osseous lesions. Hepatic steatosis. The unenhanced gallbladder, spleen, and pancreas are unremark able. No retroperitoneal lymphadenopathy. There is 1 cm obstructing stone within the right ureteropel caryl junction resulting in mild right hydronephrosis and right perinephric fat stranding. There is a 3 mm stone within the right kidney and a 6 mm stone within the left kidney. There is an additional 3 m m stone within the upper pole the left kidney. No left-sided hydronephrosis. Bladder is not well-dist ended but appears unremarkable. Small fat-containing bilateral inguinal hernias. Suboptimal evaluatio n for bowel pathology due to the lack of intravenous and oral contrast. However, there is no definite bowel wall thickening or obstruction. A few colonic diverticula. No evidence for diverticulitis. Nor mal appendix. No significant change in the bilateral adrenal gland nodules with the largest on the le ft measuring 3.6 cm. These are technically indeterminate but likely benign given the greater than 10 years of stability. IMPRESSION: 1. A 1 cm obstructing stone within the right ureteropelvic junction resulting in mild right hydroneph rosis. 2. Bilateral nephrolithiasis. 3. Hepatic steatosis. 4. Bilateral adrenal gland nodules are again noted. These are likely benign given the long-standing s tability compared to the 2006 examination. ACT 112: Negative or not required by law. Electronically signed by: Yg Patricia M.D. 02/09/2020 8:23 AM
[2020-02-09] MEDS: INSULIN GLARGINE SOLOSTAR 100 UNITS/ML 3 ML PEN SC SCH ×2 (08:51→21:02)
[2020-02-09] MEDS: TAMSULOSIN HCL 0.4 MG CAP PO SCH (08:57)
[2020-02-09] MEDS: PANTOprazole 40 MG TAB PO SCH (08:57)
[2020-02-09 09:04] LABS: Hepatitis B Surface Antigen Neg (Neg)
[2020-02-09 09:32] LABS: Hepatitis C IgG 13Yrs+Old_Rflx Neg (Neg)
[2020-02-09] MEDS ORDERED: Nursing to Pharmacy Communication ONE ×2 (09:34→15:02)
[2020-02-09] MEDS ORDERED: KETOROLAC TROMETHAMINE 15 MG/ML VIAL IV PRN (13:00)
[2020-02-09] MEDS ORDERED: GADOBUTROL 30ML VIAL IV PRN (14:01)
--- NOTE | 2020-02-09 14:36 | Magnetic Resonance Report ---
MR abdomen wo/w con HISTORY: Evaluate Adrenal nodules 4cm TECHNIQUE: Multiplanar multisequence MRI of the abdomen was performed both before and after the intra venous administration of 13 cc of Gadavist contrast. COMPARISON STUDY: Abdomen and pelvis CT 02/09/2020 and 02/21/2007. FINDINGS: There is a 3.2 cm circumscribed right adrenal gland nodule/mass. This does not demonstrate suppression on the out of phase sequences. This demonstrates uniform enhancement. Washout sequences w ere not provided on this study. Therefore, this nodule is technically indeterminate but favors a aziza gn etiology such as a lipid poor adenoma given the minimal growth over a 13 year time interval. This previously measured approximately 2.5 cm on the [address] examination. There is a 1.5 cm cyst within th e left adrenal gland which is considered to be benign. The bilateral adrenal glands are enlarged and thickened for age. However, this remains unchanged. Hepatic steatosis. Redemonstration of the obstruc ting stone within the proximal right ureter with mild right hydronephrosis. The gallbladder and pancr eas are unremarkable. No retroperitoneal lymphadenopathy. IMPRESSION: 1. A 3.2 cm right adrenal gland nodule/mass. This is technically indeterminate on this study but favo rs a benign etiology such as a lipid poor adenoma given the minimal growth over a 13 year time interv al. 2. A 1.5 cm left adrenal gland cyst. This is considered to be benign. 3. Redemonstration of the obstructing stone within the proximal right ureter resulting in mild right hydronephrosis. ACT 112: Negative or not required by law. Electronically signed by: Yg Patricia M.D. 02/09/2020 2:35 PM
--- NOTE | 2020-02-09 16:45 | Anesthesiology Consultation ---
Date of Service February 09, 2020 Assessment & Plan (1) Encounter for pre-operative examination: Chart Review Chart Review: Acceptable Risk for Surgery and Patient NOT seen in Pre Admission Testing Consults Requested none History Surgery Operation Date: 02/10/20 12:40 Proposed Procedures p Cystoscopy, Right Ureteroscopy, Laser Lithotripsy, Right Stent Placement - Abilio Barcenas, DO Height/Weight Height: 5 ft 7 in Weight: 132.8 kg Allergies Allergy/AdvReac Type Severity Reaction Status Date / Time No Known Allergies Allergy Mild Unverified 02/09/20 05:20 Medications Home Medications Medication Instructions Recorded Confirmed Last Taken pantoprazole 20 mg PO QAM 07/15/19 02/09/20 07/14/19 glucosamine sulfate [Glucosamine] 500 mg PO DAILY 02/09/20 02/09/20 Unknown multivitamin with minerals [Men's 1 tab PO DAILY 02/09/20 02/09/20 Unknown One Daily] Active Medications Generic Name Dose Route Start Last Admin Trade Name Freq PRN Reason Stop Dose Admin Gadobutrol 13 ml 02/09/20 14:01 02/09/20 14:02 Gadavist 30ml IV 02/13/20 14:00 13 ml ONCE PRN Administration Interaction Checking Sodium Chloride 1,000 mls @ 125 mls/hr 02/09/20 07:58 02/09/20 14:08 Nss 1000ml IV 03/10/20 07:57 125 mls/hr .Q8H CARL Infusion Insulin Glargine 12 units 02/09/20 09:00 02/09/20 08:51 Lantus Solostar Pen SC 03/10/20 08:59 12 units BID CARL Administration Pantoprazole Sodium 40 mg 02/09/20 09:00 02/09/20 08:57 Protonix PO 03/10/20 08:59 Not Given QAM CARL Tamsulosin HCl 0.4 mg 02/09/20 09:00 02/09/20 08:57 Flomax PO 03/10/20 08:59 Not Given QAM CARL Past Medical History Medical History GERD (gastroesophageal reflux disease) History of kidney stones Obesity (Chronic) Sepsis Past Surgical History Surgical History History of carpal tunnel surgery (Chronic) Social History Smoking Status: Never smoker Do You Dip or Chew Tobacco: No Hx Alcohol Use: No Hx Substance Use: No substance use type: does not use Physical Exam Vital Signs Last Vital Signs Temp 36.9 C 02/09/20 15:39 Pulse 71 02/09/20 15:39 Resp 16 02/09/20 15:39 BP 129/76 02/09/20 15:39 Pulse Ox 94 02/09/20 15:39 Testing Laboratory Results 02/09/20 05:13 02/09/20 05:13 Urine Color Yellow 02/09/20 05:13 Urine Appearance Clear (Clear) 02/09/20 05:13 Urine pH 5.0 (4.5-7.5) 02/09/20 05:13 Ur Specific [place] >= 1.030 (1.000-1.030) 02/09/20 05:13 Urine Protein Trace (Negative) H 02/09/20 05:13 Urine Glucose (UA) Trace (Negative) H 02/09/20 05:13 Urine Ketones Trace (Negative) H 02/09/20 05:13 Urine Nitrite Negative (Negative) 02/09/20 05:13 Ur Leukocyte Esterase Negative (Negative) 02/09/20 05:13 Urine RBC 5-10 /hpf (0-4) H 02/09/20 05:13 Urine WBC 0-5 /hpf (0-5) 02/09/20 05:13 Ur Epithelial Cells 20-30 /lpf (0-5) H 02/09/20 05:13 02/09/20 02/09/20 12:11 08:28 POC Glucose 144 H 207 H
[2020-02-09] MEDS: INSULIN ASPART 100 UNITS/ML 3 ML PEN SC SCH ×2 (18:02→21:00)
[2020-02-10] MEDS: KETOROLAC TROMETHAMINE 15 MG/ML VIAL IV PRN ×2 (00:46→15:19)
[2020-02-10] MEDS: SODIUM CHLORIDE 0.9% 1000ML 1,000 ML IV SCH ×3 (00:50→14:20)
[2020-02-10 03:55] LABS: Hepatitis A Antibody IgM NON-REACTIVE (NON-REACTIVE); Hepatitis B Core Antibody IgM NON-REACTIVE (NON-REACTIVE)
--- NOTE | 2020-02-10 04:27 | Billing Data ---
Date of Service February 10, 2020 Coding Level of Care Code 55928 Initial Inpt Care Lvl 2
[2020-02-10 05:08] LABS: Basophils # (auto) 0.01 K/uL (0-0.2); Basophils % (auto) 0.2 %; Eosinophils # (auto) 0.13 K/uL (0-0.5); Eosinophils % (auto) 2.2 %; Hemoglobin 13.6 g/dL (14.0-18.0); Immature Granulocytes # (auto) 0.01 K/uL (0.00-0.02); Immature Granulocytes % (auto) 0.2 %; Lymphocytes # (auto) 1.19 K/uL (1.2-3.4); Mean Corpuscular Hemoglobin 30.3 pg (25-34); Mean Corpuscular Volume 89.1 fL (80-100); Mean Platelet Volume 9.1 fL (7.4-10.4); Monocytes # (auto) 0.67 K/uL (0.11-0.59); Monocytes % (auto) 11.3 %; Neutrophils # (auto) 3.94 K/uL (1.4-6.5); Neutrophils % (auto) 66.1 %; Platelet Count 131 K/uL (130-400); RDW Coefficient of Variation 12.9 % (11.5-14.5); RDW Standard Deviation 41.6 fL (36.4-46.3); Red Blood Count 4.49 M/uL (4.7-6.1); White Blood Count 5.95 K/uL (4.8-10.8)
[2020-02-10 05:45] LABS: Albumin Level 3.2 gm/dl (3.4-5.0); BUN Creatinine Ratio 13.7 (10-20); Calcium 8.2 mg/dl (8.5-10.1); Creatinine Clr Calc Pharmacy 100.7 ml/min; Est GFR (African American) 83.8; Est GFR (Non-African American) 72.3; Potassium 4.2 mmol/L (3.5-5.1)
[2020-02-10 05:49] LABS: Albumin Globulin Ratio 1.1 (0.9-2); Bilirubin,Total 0.5 mg/dl (0.2-1); Total Protein 6.2 gm/dl (6.4-8.2)
[2020-02-10] MEDS ORDERED: cefTRIAXone SODIUM 2,000 MG in DEXTROSE 5% 50 ML IV SCH (07:00)
[2020-02-10] MEDS ORDERED: Nursing to Pharmacy Communication ONE ×2 (07:05→13:23)
[2020-02-10 07:20] LABS: Estimated Average Glucose 194 mg/dl; Hemoglobin A1C 8.4 % (4.5-5.6)
[2020-02-10] MEDS: INSULIN GLARGINE SOLOSTAR 100 UNITS/ML 3 ML PEN SC SCH (09:00)
--- NOTE | 2020-02-10 09:00 | Urology Consultation ---
Date of Consultation February 10, 2020 Assessment & Plan (1) Calculus of proximal right ureter: Risks and benefits discussed at length for procedure. These include bleeding, infection, injury to surrounding tissues or organs, and risks associated with anesthesia. Patient states understanding and agrees to proceed. Will sign consent and schedule. WIll plan for cysto and right ureteroscopy with laser lithotripsy History of Present Illness Attending Physician: Hugo Richardson DO History of Present Illness New consultation for patient with stone, discomfort, obstruction, and ill feelings. Patient developed sudden onset of pain into flank going down and radiating into groin and back in waves comes and goes. Can be severe at times. Discussed and reviewed patient's family history for any history of stone disease. Also, discussed patient's medical surgery history especially related to any history of urinary issues or stone disease. Patient was admitted and is undergoing observation. Allergies Allergy/AdvReac Type Severity Reaction Status Date / Time No Known Allergies Allergy Mild Unverified 02/09/20 05:20 Home Medications Home Medications Medication Instructions Recorded Confirmed Type pantoprazole 20 mg PO QAM 07/15/19 02/09/20 History glucosamine sulfate [Glucosamine] 500 mg PO DAILY 02/09/20 02/09/20 History multivitamin with minerals [Men's 1 tab PO DAILY 02/09/20 02/09/20 History One Daily] Patient History Medical History GERD (gastroesophageal reflux disease) History of kidney stones Obesity (Chronic) Sepsis Surgical History History of carpal tunnel surgery (Chronic) Social History Preferred Language: [place] Communication Ability: Effective Salesperson Jewelry Required: No Beliefs That Will Affect Care: None Current Living Situation: Spouse and Family Feels Safe at Home: Yes Safety Concerns: Feels Safe At This Time Smoking Status: Never smoker Do You Dip or Chew Tobacco: No ; Second Hand Exposure: No ; Hx Alcohol Use: No Hx Substance Use: No Review of Systems Review of Systems: All systems reviewed & are unremarkable except as noted in HPI & below Physical Exam Physical Exam: General: Alert and oriented x 3 in no acute distress. Patient is well nourished and well kept. HEENT: Normocephalic Atraumatic. Inspection normal. Cranial Nerves 2-12 Grossly intact. Nares are clear. Neck is supple. Normal inspection of face. Normal inspection of neck. Neurologic: No deficits on inspection. Baseline for motor function and sensory. Psychologic: Normal affect. Respiratory: Nonlabored. No use of accessory muscles. No tachypnea or dyspnea. Cardiovascular: No tachycardia Skin: [place] and Dry. No rashes or visible lesions. Extremities: Moving without issues. No motor deficits on inspection Lymphatics: No edema Abdomen: Soft Non-distended. No acites. No rebound or guarding. Results & Data Vital Signs (Past 12 Hours) Vital Signs Temp Pulse Resp BP Pulse Ox 02/10/20 07:00 36.8 C 68 18 133/87 96 02/09/20 23:05 36.8 C 75 18 127/80 96 PG Care Time/CCT Total # of Minutes Spent Total Time Spent with Patient: Total time spent is greater than 50% in coordination of care (as documented) at patient's floor/unit and/or counseling patient: Coding Level of Care Code 37689 Inpt Consult Level 5 Diagnoses Calculus of proximal right ureter N20.1
[2020-02-10] MEDS: PANTOprazole 40 MG TAB PO SCH (09:25)
[2020-02-10] MEDS: TAMSULOSIN HCL 0.4 MG CAP PO SCH (09:25)
[2020-02-10] MEDS ORDERED: ePHEDrine sulfate 50 MG/ML AMP IV PRN (10:02)
[2020-02-10] MEDS ORDERED: ATROPINE SULFATE 0.1 MG/ML 10ML SYR IV PRN (10:02)
[2020-02-10] MEDS ORDERED: fentaNYL citrate 100 MCG/2 ML VIAL IV PRN (10:02)
[2020-02-10] MEDS ORDERED: PROPOFOL IV EMULSION 10 MG/ML 20 ML VIAL IV ONE (10:29)
[2020-02-10] MEDS ORDERED: DEXAMETHASONE SOD INJ 4 MG/ML VIAL ONE (10:29)
[2020-02-10] MEDS ORDERED: MIDAZOLAM HCL 1 MG/ML 2ML VIAL ONE (10:29)
[2020-02-10] MEDS ORDERED: LIDOCAINE HCL 2% 2 ML VIAL/AMP(20MG/ML) INFIL ONE (10:29)
[2020-02-10] MEDS ORDERED: fentaNYL citrate 100 MCG/2 ML VIAL ONE (10:29)
[2020-02-10] MEDS ORDERED: ONDANSETRON INJ 2 MG/ML 2 ML VIAL ONE (10:29)
[2020-02-10] MEDS ORDERED: LARYING-O-JET KIT (LTA) ONE (10:31)
[2020-02-10] MEDS ORDERED: SUCCINYLCHOLINE CHLORIDE 20 MG/ML 10 ML VIAL ONE (10:33)
[2020-02-10] MEDS ORDERED: ROCURONIUM BROMIDE 10 MG/ML 5 ML VIAL ONE (11:40)
--- NOTE | 2020-02-10 11:57 | Operative Report ---
PG Post Operative Report Pre & Post Diagnosis Ureteral Stone Right Same Operation Date: 02/10/20 12:40 <No data on this case meets the specified criteria> I identified the patient and participated in the time-out.: Yes Procedure Cystoscopy with right ureteroscopy, laser lithotripsy, stone basket extraction, retrograde pyelogram, stent. Operation Date: 02/10/20 12:40 <No data on this case meets the specified criteria> Surgeon Abilio Barcenas, II, DO Mutual Funds Agent None Estimated Blood Loss 1 Findings Consistent with Post-Op Diagnosis Stone destroyed to dust and small fragments and larger fragments removed. Specimens Stone Fragments Drains 6 Fr Multilength Anesthesia Type General Complications none Disposition Disposition: Recovery Room Indications Patient with bothersome stones. Risks and benefits discussed at length. Description of Procedure Patient was consented and brought back to the operating room. Patient was placed under anesthesia in the supine position and moved to the dorsal lithotomy position. Patient was prepped and draped in the regular sterile fashion. A time out was completed identifying the correct patient and procedure. A 30degree Cystoscope was placed into the bladder and the entire bladder was examined. The UO's were identified. The UO was cannulized with a catheter and a retrograde pyelogram was completed. A wire was then placed. A ureteral access sheath and second safety wire was placed. The flexible ureteroscope was taken into the ureter. The entire ureter and renal pelvis were examined. The stones were identified. A laser fiber was selected and the stones were pulverized to dust and small fragments. Larger fragments were grasped and removed and sent for analysis. The entire area was once again examined. No residual large fragments or areas of concern were noted. The scope was slowly removed with the wire left in place. Contrast was placed through the scope for a pyelogram to assist in stent placement. The entire ureter was examined as the scope was slowly removed. No obstructions or other areas of concern were noted. With the wire in place, a 6 Fr Double J stent was placed. It was confirmed with fluoroscopy. With the stent in place, the bladder was emptied. The scope was removed. The patient was cleaned, aroused from anesthesia, and transferred to the pacu in stable condition having tolerated the procedure well with no complications. I was present and participated in all aspects of the procedure. The patient will be monitored in the PACU until transferred. I attest to the content of the Intraoperative Record and any orders documented therein. Any exceptions are noted below.
[2020-02-10] MEDS ORDERED: INSULIN ASPART 100 UNITS/ML 3 ML PEN SC SCH ×2 (12:00→16:30)
[2020-02-10] MEDS ORDERED: CONRAY 60% 50 ML VIAL INSTIL ONE (12:11)
--- NOTE | 2020-02-10 12:18 | Fluoroscopy Report ---
FL retrograde includes kub CLINICAL HISTORY: RETROGRADElaser lithotripsy. Stent placement. COMPARISON STUDY: CT scan dated 02/09/2020 FLUOROSCOPY TIME: 25 seconds. NUMBER OF FLUOROSCOPIC IMAGES: 4 FINDINGS: 4 intraoperative fluoroscopic spot images demonstrate placement of a right-sided nephrouret eral stent. IMPRESSION: Intraoperative fluoroscopic spot images demonstrating a double pigtail right-sided nephr oureteral stent ACT 112: Negative or not required by law. Electronically signed by: Tk Streeter M.D. 02/10/2020 12:17 PM
--- NOTE | 2020-02-10 12:52 | Anesthesiology Progress Note ---
Date of Service February 10, 2020 Anesthesia Post Procedure Vital Signs Vital Signs: Temp Pulse Pulse Resp BP Pulse Ox 02/10/20 12:45 66 15 123/71 96 02/10/20 12:35 72 21 109/64 98 02/10/20 12:27 36.0 C L 67 18 106/63 97 02/10/20 09:35 36.4 C L 81 18 144/90 H 96 02/10/20 07:00 36.8 C 68 18 133/87 96 02/09/20 23:05 36.8 C 75 18 127/80 96 02/09/20 15:39 36.9 C 71 16 129/76 94 Pain Intensity Right Flank: Pain Intensity: 5 Transfer of Care Handoff Completed per policy Notes Mental Status: alert / awake / arousable and participated in evaluation Patient Amnestic to Procedure: Yes Nausea / Vomiting: adequately controlled Pain: adequately controlled Airway Patency, RR, SpO2: stable & adequate BP & HR: stable & adequate Hydration State: stable & adequate Anesthetic Complications: no major complications apparent and Pt Satisfied with anesthetic care
--- NOTE | 2020-02-10 16:13 | Discharge Summary ---
Date of Service February 10, 2020 Admission HPI Per Admitting Provider Wade Torres is a 49yo M with Pmhx of GERD and renal stones who presents with 3 days of increasing R flank pain which feels similar to kidney stones he has had in the past. Wade reports that about 3 days ago he started to have right flank pain without fevers or chills which felt similar to kidney stones he has had in the past. His pain initially improved with Tylenol, hydrocodone but at approximately 1:00 this morning he developed persistent increasing pain which did not improve and caused him to present to the emergency department. He denies dysuria or urinary symptoms. He has not noticed blood in his urine, and has not had difficulty emptying his bladder. He has not had fever, chills, night sweats, or abdominal pain. He endorses nausea and a couple episodes of small-volume emesis without blood or bile. Denies diarrhea or constipation. He denies chest pain, chest pressure, palpitations, diaphoresis or fluctuations in blood pressure. Medical history: GERD, kidney stones, no history of diabetes Medications: Omeprazole Medication allergies: No known allergies Surgical history: Reviewed Social history: Lives with his and son. Denies history of tobacco, alcohol, or recreational drug use. Family history: Reviewed in EMR. Of note family history of diabetes in his father and maternal grandfather, history of MS in his father and uncle around age 60. CODE STATUS: Full code CT stat rad report as below: CT ABDOMEN & PELVIS Without Contrast: There is a 9 mm obstructing stone at the right UPJ which causes mild right hydronephrosis and perinephric fat stranding. Few additional nonobstructing stones within the kidneys bilaterally. Hepatic steatosis. Hepatomegaly. Left adrenal nodule measuring 3.9 cm. There are 2 right adrenal nodules measuring 3.1 cm and 3.4 cm. All of these are incompletely characterized. No suspicious features. Consider multiphase CT or MRI for characterization. Principal Diagnosis Right ureteral stone causing obstruction, hydronephrosis Discharge Exam Constitutional WD/WN, vitals as above + overweight Eyes PERRL, conjunctivae normal, anicteric sclerae ENMT external ear and nose normal, oropharynx normal Neck normal visual inspection, trachea midline and + thick neck; neck nontender Respiratory normal respiratory effort, lungs clear to auscultation Cardiovascular RRR, no murmur, no edema Gastrointestinal (Abdomen) normal bowel sounds, soft, nontender, no hepatosplenomegaly Musculoskeletal no cyanosis or clubbing, extremities motor strength 5/5 Skin no rashes, warm and dry Neurologic patellar DTR's 2+ bilat, sensation intact and PERRL, EOMI, accommodation nl, no face palsy, no dysarthria Psychiatric A+Ox3, euthymic affect Lymphatic no cervical or axillary lymphadenopathy Discharge Data Allergies Allergy/AdvReac Type Severity Reaction Status Date / Time No Known Allergies Allergy Mild Unverified 02/09/20 05:20 Consultations 02/09/20 06:05 ED Decision to Admit Stat 02/09/20 07:58 Consult Urology Routine Procedures Performed Operation Date: 02/10/20 12:40 Actual Procedures p Cystoscopy, Right Ureteroscopy, Laser Lithotripsy, Right Stent Placement(Right) - Abilio Barcenas, Ordered Studies 02/09/20 05:05 CT abd pelvis wo con Urgent 02/09/20 07:58 MR abdomen wo/w con Routine 02/10/20 15:00 FL retrograde includes kub Routine Hospital Course (1) Hydronephrosis with renal calculous obstruction: s/p cystoscopy with right ureteral stent, lithotripsy, stone retrieval on 02/10/20 tolerated well, minimal pain afterwards some residual hematuria and admits to dysuria h/o stones, current stone analysis pending will d/c to home, continue Flomax, Oxycodone PRN, Pyridium PRN follow up with urology in 1-2 weeks for stent removal no evidence of UTI on urine culture, thus no antibiotics given vitals stable, renal function normal on discharge (2) GERD (gastroesophageal reflux disease): no ongoing symptoms (3) Obesity: recommend weight loss (4) Adrenal adenoma: seen on initial CT obtained MRI abdomen to better characterize the lesions 1. A 3.2 cm right adrenal gland nodule/mass. This is technically indeterminate on this study but favors a benign etiology such as a lipid poor adenoma given the minimal growth over a 13 year time interval. 2. A 1.5 cm left adrenal gland cyst. This is considered to be benign. both lesions favor a benign process, can be followed as outpatient, no further work up Total Time Total Time Spent Total Time Spent (In Minutes): 32 minutes Total Time Includes: Examination of the Patient, Discharge Planning, Medication Reconciliation and Communication With Other Providers (Dr Lucas) Discharge Plan Discharge Items Patient Disposition: Home - Self-Care Reason For Visit: RENAL STONE W/ HYDRO Discharge Diagnosis: Right ureteral stone status post cystoscopy, stent, lithotripsy and stone retrieval Stable adrenal nodule, considered benign Condition on Discharge: Good Goals: follow up with Urology in 2 weeks Activity: Resume your previous activity Driving/Machine Use: Resume 1 day after discharge Weightbearing: Full weightbearing Non-emergency contact: Urologist Call non-emergency contact if: you have any medication questions, your symptoms worsen, your pain is not controlled and you have a fever Follow-up/Referrals: Abilio Barcenas, [Physician] - (1-2 weeks) PCP,NO [Primary Care Provider] - Diet: Regular Addtl Attending Provider Instructions: Medications: - FLOMAX: helps relax prostate, helps stone fragments pass, take daily for 14 days - PYRIDIUM: can take every 8 hours for any bladder spams, lower urinary tract symptoms - OXYCODONE: take as needed for pain, every 6 hours, do not take more than prescribed Right ureteral stone, hydronephrosis treated with cystoscopy and stent, stone retrieval after lithotripsy will need to follow up with urology in 1-2 weeks for stent removal, call their number on Wednesday normal to have blood in urine for a few days, will clear up if you have any fever or chills then call urology, you did NOT have any signs of a urinary tract infection on urine culture use above medications for relief Adrenal lesions: noted on CT of the abdomen/pelvis the MRI of the abdomen showed that the one lesion has been stable for 13 years, favors a benign process the other lesion was a cyst, also a benign process no further work up recommended at this time Pending Studies at Discharge: Yes Studies:: stone analysis Stand-Alone Forms: My [employer], Smoking Cessation Medications and DC Order Prescriptions: New tamsulosin 0.4 mg Capsule 0.4 mg PO QAM 14 Days Qty: 14 RF: 0 phenazopyridine [Pyridium] 100 mg tablet 100 mg PO Q8H PRN (Reason: bladder spasms) Qty: 20 RF: 0 oxycodone 5 mg tablet 5 mg PO Q6H PRN (Reason: pain) Qty: 20 RF: 0 Continued pantoprazole 20 mg Tablet,Delayed Release (Dr/Ec) 20 mg PO QAM RF: 0 multivitamin with minerals [Men's One Daily] Tablet 1 tab PO DAILY RF: 0 glucosamine sulfate [Glucosamine] 500 mg Tablet 500 mg PO DAILY RF: 0 Discharge Orders: Discharge Order (Routine); Ordered 02/10/20 Ordered By: Hugo Richardson Admission Data Admit Date/Time: 02/09/20 06:58 Attending Provider: Hugo Richardson Admit Provider: August Quintana Primary Care Provider: PCP,NO Other Providers: Dav Robertson ; Abilio Barcenas Other Interventions: Discharge Summary Assessment (RN) Last Done: 02/10/20 16:28 DC Date/Time DO NOT enter until pt leaves facility: 02/10/20 16:43 Coding Level of Care Code D/C Day Management >30 mins Diagnoses Hydronephrosis with renal calculous obstruction N13.2 GERD (gastroesophageal reflux disease) K21.9 Obesity E66.9 Adrenal adenoma D35.00
[2020-02-16 11:14] LABS: Calculus Nidus Not Observed; Component 2 DNR; Source RIGHT URETERAL STONE
== END 2020-02-10 16:43 | disposition home or self-care (01) | DRG 660 ==
LOC: ED 04:42 → SUATTDRO 06:58 → 3E 06:58

== ENCOUNTER 2020-10-17 23:13 | Inpatient (IN) ==
[2020-10-17] MEDS ORDERED: SODIUM CHLORIDE 0.9% 1000ML 1,000 ML IV ONE ×2 (23:42→23:47)
[2020-10-17] MEDS ORDERED: cefTRIAXone SODIUM 2,000 MG/70 ML BAG IV STA (23:42)
[2020-10-17] MEDS ORDERED: DEXAMETHASONE SOD INJ 10 MG/ML VIAL IV ONE (23:47)
[2020-10-17] MEDS ORDERED: VANCOMYCIN CONSULT ACTIVE PRN (23:47)
[2020-10-17] MEDS ORDERED: VANCOMYCIN HCL 2,000 MG in SODIUM CHLORIDE 0.9% 500 ML IV ONE (23:47)
[2020-10-18 00:40] LABS: Appearance Urine Cloudy (Clear); Blood Urine Negative (Negative); Color Urine Dark Yellow; Epithelial Cell Urine Auto >30 /lpf (0-5); Glucose Urine UA Negative (Negative); Ketones Urine Trace (Negative); Leukocyte Esterase Urine Trace (Negative); Nitrite Urine Positive (Negative); Protein Urine 1+ (Negative); RBC Urine Automated 0-4 /hpf (0-4); Specific Gravity Urine 1.038 (1.000-1.030); Urobilinogen Urine Negative (Negative)
[2020-10-18 00:44] LABS: Bilirubin Urine 1+ (Negative)
[2020-10-18 00:51] LABS: INR 1.3 (0.9-1.1); Partial Thromboplastin Ratio 1.1; Partial Thromboplastin Time 30.1 Seconds (21.0-31.0); Prothrombin Time 13.2 Seconds (9.0-12.0)
[2020-10-18 00:54] LABS: Bacteria Urine Automated 1+ (Negative)
[2020-10-18 00:59] LABS: Albumin Level 2.8 gm/dl (3.4-5.0); BUN Creatinine Ratio 18.8 (10-20); Calcium 9.3 mg/dl (8.5-10.1); Creatinine Clr Calc Pharmacy 73.6 ml/min; Est GFR (African American) 60.9; Est GFR (Non-African American) 52.5; Magnesium 1.8 mg/dl (1.8-2.4)
[2020-10-18 01:05] LABS: Influenza A virus by PCR Negative (Neg); Influenza B virus by PCR Negative (Neg); RSV by PCR Negative (Neg)
[2020-10-18 01:07] LABS: Albumin Globulin Ratio 0.6 (0.9-2); Bilirubin,Total 0.8 mg/dl (0.2-1); Globulin 4.5 gm/dl (2.5-4.0); Total Protein 7.3 gm/dl (6.4-8.2); Troponin I 0.082 ng/ml (0-0.045)
[2020-10-18 01:28] LABS: Hematocrit (blood only) 42.5 % (42-52); Hemoglobin 15.3 g/dL (14.0-18.0); Mean Corpuscular Hemoglobin 30.8 pg (25-34); Mean Corpuscular Volume 85.5 fL (80-100); Mean Platelet Volume 11.8 fL (7.4-10.4); Platelet Count 23 K/uL (130-400); RDW Coefficient of Variation 13.1 % (11.5-14.5); RDW Standard Deviation 41.4 fL (36.4-46.3); Red Blood Count 4.97 M/uL (4.7-6.1); White Blood Count 4.82 K/uL (4.8-10.8)
--- NOTE | 2020-10-18 01:28 | Emergency Department Note ---
History of Present Illness General Chief complaint: Dental/Oral Stated complaint: TOOTH PAIN Time Seen by Provider: 10/17/20 23:32 History of Present Illness Maximum Pain Intensity: 5 This 49-year-old presents to the ER complaining of fever, chills, body aches, headache, neck stiffness for the past few days Location: Generalized Quality: Achy Severity: Moderate Duration: 4 days Timing: Started Wednesday Context: Symptoms got much worse and patient came in Modifying factors: better with rest; worse with activity Patient denies chest pain, dyspnea, abdominal pain, vomiting, diarrhea. Patient states he feels quite weak and sick. He has been scratching at a rash on his neck. Immunizations are current. Home Medications Medication Instructions Recorded Confirmed Type glucosamine sulfate [Glucosamine] 500 mg PO DAILY 02/09/20 10/18/20 History multivitamin with minerals [Men's 1 tab PO DAILY 02/09/20 10/18/20 History One Daily] amoxicillin-pot clavulanate 1 tab PO BID #14 tab 10/15/20 10/18/20 Rx [Augmentin] Allergies Allergy/AdvReac Type Severity Reaction Status Date / Time No Known Allergies Allergy Mild Verified 10/18/20 01:21 Past Med/Surg History Medical History (Updated 10/18/20 @ 02:57 by Rosibel Short PA-C) GERD (gastroesophageal reflux disease) History of kidney stones Obesity Sepsis Surgical History History of carpal tunnel surgery Social History Smoking Status: Never smoker Second Hand Exposure: No; Hx Alcohol Use: No Hx Substance Use: No Preferred Language: Uzbek Communication Ability: Effective Medical Claims Manager Required: No Beliefs That Will Affect Care: None Current Living Situation: Spouse and Family Feels Safe at Home: Yes Assistive Devices: None Review of Systems A total of 10 systems reviewed and were otherwise negative Physical Exam Vital Signs Vital Signs - 24 hr 10/17/20 23:17 10/18/20 00:02 10/18/20 00:13 Temperature 36.9 C Temperature Source Temporal Artery Scan Pulse Rate 122 H 118 H Pulse Rate from SpO2 Sensor Respiratory Rate 20 22 Respiratory Effort / Characteristics Non-Labored Spontaneous Non-Labored Respiratory Depth Normal Blood Pressure 98/72 L 114/86 Blood Pressure Mean 80 91 Blood Pressure Position Sitting Pulse Oximetry 96 95 Oxygen Delivery Method Room Air Room Air Sepsis Recent Fever Within 48 Hours Yes Sepsis New/Unexplained Change in Mental Status N/A Sepsis Action Taken by Nursing No Action Required 10/18/20 01:19 10/18/20 01:30 10/18/20 02:00 Temperature Temperature Source Pulse Rate 114 H 112 H 112 H Pulse Rate from SpO2 Sensor 115 H 114 H Respiratory Rate 22 20 22 Respiratory Effort / Characteristics Respiratory Depth Blood Pressure 143/106 H 162/118 H 105/78 Blood Pressure Mean 117 130 81 Blood Pressure Position Pulse Oximetry 95 94 95 Oxygen Delivery Method Room Air Room Air Room Air Sepsis Recent Fever Within 48 Hours Sepsis New/Unexplained Change in Mental Status Sepsis Action Taken by Nursing 10/18/20 02:15 10/18/20 02:30 10/18/20 02:45 Temperature Temperature Source Pulse Rate 112 H 110 H 109 H Pulse Rate from SpO2 Sensor 109 H 108 H Respiratory Rate 21 21 24 Respiratory Effort / Characteristics Respiratory Depth Blood Pressure 109/83 119/80 111/79 Blood Pressure Mean 93 99 85 Blood Pressure Position Pulse Oximetry 95 95 94 Oxygen Delivery Method Room Air Room Air Room Air Sepsis Recent Fever Within 48 Hours Sepsis New/Unexplained Change in Mental Status Sepsis Action Taken by Nursing 10/18/20 03:00 Temperature Temperature Source Pulse Rate 107 H Pulse Rate from SpO2 Sensor 109 H Respiratory Rate 18 Respiratory Effort / Characteristics Respiratory Depth Blood Pressure 94/73 L Blood Pressure Mean 76 Blood Pressure Position Pulse Oximetry 96 Oxygen Delivery Method Room Air Sepsis Recent Fever Within 48 Hours Sepsis New/Unexplained Change in Mental Status Sepsis Action Taken by Nursing VITALS: Vitals are noted on the nurse's note and reviewed by myself. Vital signs tachycardic and hypotensive. GENERAL: Ill-appearing male diaphoretic SKIN: Petechiae to chest back and legs, nonblanchable, the skin was without erythema, edema, or bruising. There is no tenting of the skin. Capillary reflex less than 2 seconds. HEAD: Normocephalic atraumatic. EARS: External auditory canals clear, tympanic membranes pearly phillips without erythema or effusion bilaterally. EYES: Pupils equal round and reactive to light and accommodation. Conjunctivae without injection, sclerae without icterus. Extraocular movements intact. NOSE: Patent, turbinates without inflammation or discharge. No sinus tenderness. Dental exam: Diffuse dental decay without palpable abscess. No Tahir's angina. No trismus. MOUTH: Mucous membranes mildly dry. Pharynx without erythema or exudate. Uvula midline. Airway patent. Tongue does not deviate. NECK: Pain with chin to chest. No lymphadenopathy. No thyromegaly. Cervical spine is nontender. No JVD. HEART: Mildly tachycardic rate and rhythm LUNGS: Clear to auscultation bilaterally without wheezes, rales or rhonchi. No retractions or accessory muscle use. ABDOMEN: Positive bowel sounds x 4. Normal tympanic percussion. Soft, nontend er, without masses or organomegaly. Wolff sign negative. No guarding or rebound tenderness. No CVA tenderness MUSCULOSKELETAL: No muscle atrophy, erythema, or edema noted. NEURO: Patient was alert and oriented to person place and time. Normal sensation to light and sharp touch. No focal neurological deficits. Course Administered Medications Discontinued Medications Dexamethasone (Dexamethasone Sod Inj 10 Mg/Ml Vial) 10 mg IV NOW ONE Stop: 10/17/20 23:48 Last Admin: 10/18/20 00:35 Dose: 10 mg Documented by: [id number] Ceftriaxone Sodium (Rocephin) 2,000 mg in 70 mls @ 140 mls/hr IV NOW STA Stop: 10/18/20 00:11 Last Infusion: 10/18/20 01:06 Dose: 0 mls/hr Documented by: [id number] Admin: 10/18/20 00:35 Dose: 140 mls/hr Documented by: [id number] Sodium Chloride (Nss 1000ml) 1,000 mls @ 999 mls/hr IV .Q1H1M ONE Stop: 10/18/20 00:42 Last Infusion: 10/18/20 01:36 Dose: 0 mls/hr Documented by: [id number] Admin: 10/18/20 00:34 Dose: 999 mls/hr Documented by: [id number] Vancomycin HCl 2,000 mg/ (Sodium Chloride) 540 mls @ 200 mls/hr IV NOW ONE Stop: 10/18/20 02:28 Last Admin: 10/18/20 01:15 Dose: 200 mls/hr Documented by: [id number] Sodium Chloride (Nss 1000ml) 1,000 mls @ 999 mls/hr IV .Q1H1M ONE Stop: 10/18/20 00:47 Last Infusion: 10/18/20 01:37 Dose: 0 mls/hr Documented by: [id number] Admin: 10/18/20 00:35 Dose: 999 mls/hr Documented by: [id number] Acetaminophen (Ofirmev) 1,000 mg in 100 mls @ 400 mls/hr IV NOW STA Stop: 10/18/20 02:29 Last Infusion: 10/18/20 02:40 Dose: 0 mls/hr Documented by: [id number] Admin: 10/18/20 02:23 Dose: 400 mls/hr Documented by: [id number] Ioversol (Ioversol 100ml) 100 ml IV ONCE ONE Stop: 10/18/20 01:57 Last Admin: 10/18/20 01:56 Dose: 93 ml Documented by: [id number] Medical Decision Making Medical Records Attestation: I reviewed the patient's medical records. Home Medications Current Medication List: was personally reviewed by me Laboratory Data Attestation: I reviewed the patient's lab results. Result diagrams: 10/18/20 00:31 10/18/20 00:31 Lab Results 10/18/20 10/18/20 10/18/20 Range/Units 00:02 00:02 00:11 WBC (4.8-10.8) K/uL RBC (4.7-6.1) M/uL Hgb (14.0-18.0) g/dL Hct (42-52) % MCV (80-100) fL MCH (25-34) pg MCHC (32-36) g/dL RDW Std Deviation (36.4-46.3) fL RDW Coeff of Lara (11.5-14.5) % Plt Count (130-400) K/uL MPV (7.4-10.4) fL Immature Gran % (Auto) % Neut % (Auto) % Lymph % (Auto) % [place] % (Auto) % Eos % (Auto) % Baso % (Auto) % Neut # (Auto) (1.4-6.5) K/uL Lymph # (Auto) (1.2-3.4) K/uL [place] # (Auto) (0.11-0.59) K/uL Eos # (Auto) (0-0.5) K/uL Baso # (Auto) (0-0.2) K/uL Immature Gran # (Auto) (0.00-0.02) K/uL Platelet Estimate (Normal) RBC Morphology PT (9.0-12.0) Seconds INR (0.9-1.1) APTT (21.0-31.0) Seconds PTT Ratio Sodium (136-145) mmol/L Potassium (3.5-5.1) mmol/L Chloride (98-107) mmol/L Carbon Dioxide (21-32) mmol/L Anion Gap (3-11) BUN (7-18) mg/dl Creatinine (0.6-1.4) mg/dl Est Cr Clr Drug Dosing ml/min Est GFR ( Amer) Est GFR (Non-Af Amer) BUN/Creatinine Ratio (10-20) Glucose (70-99) mg/dl Lactate (0.4-2.0) mmol/L Calcium (8.5-10.1) mg/dl Magnesium (1.8-2.4) mg/dl Total Bilirubin (0.2-1) mg/dl AST (15-37) U/L ALT (12-78) U/L Alkaline Phosphatase (45-117) U/L Troponin I (0-0.045) ng/ml Total Protein (6.4-8.2) gm/dl Albumin (3.4-5.0) gm/dl Globulin (2.5-4.0) gm/dl Albumin/Globulin Ratio (0.9-2) Urine Color Dark Yellow Urine Appearance Cloudy A (Clear) Urine pH 5.0 (4.5-7.5) Ur Specific [place] 1.038 H (1.000-1.030) Urine Protein 1+ H (Negative) Urine Glucose (UA) Negative (Negative) Urine Ketones Trace H (Negative) Urine Blood Negative (Negative) Urine Nitrite Positive A (Negative) Urine Bilirubin 1+ H (Negative) Urine Urobilinogen Negative (Negative) Ur Leukocyte Esterase Trace H (Negative) Urine WBC (Auto) 1-5 (0-5) /hpf Urine RBC (Auto) 0-4 (0-4) /hpf U Hyaline Cast (Auto) 10-30 H (0-5) /lpf U Epithel Cells (Auto) >30 H (0-5) /lpf Urine Bacteria (Auto) 1+ H (Negative) Ur Renal Epithelial Cell Not Reportable Granular Casts 10-20 H (0) /lpf Urine Yeast Not Reportable COVID-19 Eval Order [facility]Rsv at [facility] SARS-CoV-2 (PCR) POSITIVE A* (Negative) Influenza Type A (PCR) Negative (Neg) Influenza Type B (PCR) Negative (Neg) RSV (RT-PCR) Negative (Neg) 10/18/20 10/18/20 10/18/20 Range/Units 00:31 00:31 00:31 WBC 4.82 (4.8-10.8) K/uL RBC 4.97 (4.7-6.1) M/uL Hgb 15.3 (14.0-18.0) g/dL Hct 42.5 (42-52) % MCV 85.5 (80-100) fL MCH 30.8 (25-34) pg MCHC 36.0 (32-36) g/dL RDW Std Deviation 41.4 (36.4-46.3) fL RDW Coeff of Lara 13.1 (11.5-14.5) % Plt Count 23 L* (130-400) K/uL MPV 11.8 H (7.4-10.4) fL Immature Gran % (Auto) 0.6 % Neut % (Auto) 77.8 % Lymph % (Auto) 14.3 % [place] % (Auto) 5.6 % Eos % (Auto) 0.2 % Baso % (Auto) 1.5 % Neut # (Auto) 3.75 (1.4-6.5) K/uL Lymph # (Auto) 0.69 L (1.2-3.4) K/uL [place] # (Auto) 0.27 (0.11-0.59) K/uL Eos # (Auto) 0.01 (0-0.5) K/uL Baso # (Auto) 0.07 (0-0.2) K/uL Immature Gran # (Auto) 0.03 H (0.00-0.02) K/uL Platelet Estimate SIGNIFIC DECREASED (Normal) RBC Morphology Unremarkable PT 13.2 H (9.0-12.0) Seconds INR 1.3 H (0.9-1.1) APTT 30.1 (21.0-31.0) Seconds PTT Ratio 1.1 Sodium 126 L (136-145) mmol/L Potassium 4.0 (3.5-5.1) mmol/L Chloride 91 L (98-107) mmol/L Carbon Dioxide 23 (21-32) mmol/L Anion Gap 12.0 H (3-11) BUN 29 H (7-18) mg/dl Creatinine 1.55 H (0.6-1.4) mg/dl Est Cr Clr Drug Dosing 73.6 ml/min Est GFR ( Amer) 60.9 Est GFR (Non-Af Amer) 52.5 BUN/Creatinine Ratio 18.8 (10-20) Glucose 171 H (70-99) mg/dl Lactate (0.4-2.0) mmol/L Calcium 9.3 (8.5-10.1) mg/dl Magnesium 1.8 (1.8-2.4) mg/dl Total Bilirubin 0.8 (0.2-1) mg/dl AST 38 H (15-37) U/L ALT 34 (12-78) U/L Alkaline Phosphatase 77 (45-117) U/L Troponin I 0.082 H* (0-0.045) ng/ml Total Protein 7.3 (6.4-8.2) gm/dl Albumin 2.8 L (3.4-5.0) gm/dl Globulin 4.5 H (2.5-4.0) gm/dl Albumin/Globulin Ratio 0.6 L (0.9-2) Urine Color Urine Appearance (Clear) Urine pH (4.5-7.5) Ur Specific [place] (1.000-1.030) Urine Protein (Negative) Urine Glucose (UA) (Negative) Urine Ketones (Negative) Urine Blood (Negative) Urine Nitrite (Negative) Urine Bilirubin (Negative) Urine Urobilinogen (Negative) Ur Leukocyte Esterase (Negative) Urine WBC (Auto) (0-5) /hpf Urine RBC (Auto) (0-4) /hpf U Hyaline Cast (Auto) (0-5) /lpf U Epithel Cells (Auto) (0-5) /lpf Urine Bacteria (Auto) (Negative) Ur Renal Epithelial Cell Granular Casts (0) /lpf Urine Yeast COVID-19 Eval Order SARS-CoV-2 (PCR) (Negative) Influenza Type A (PCR) (Neg) Influenza Type B (PCR) (Neg) RSV (RT-PCR) (Neg) 10/18/20 10/18/20 Range/Units 00:31 02:21 WBC (4.8-10.8) K/uL RBC (4.7-6.1) M/uL Hgb (14.0-18.0) g/dL Hct (42-52) % MCV (80-100) fL MCH (25-34) pg MCHC (32-36) g/dL RDW Std Deviation (36.4-46.3) fL RDW Coeff of Lara (11.5-14.5) % Plt Count (130-400) K/uL MPV (7.4-10.4) fL Immature Gran % (Auto) % Neut % (Auto) % Lymph % (Auto) % [place] % (Auto) % Eos % (Auto) % Baso % (Auto) % Neut # (Auto) (1.4-6.5) K/uL Lymph # (Auto) (1.2-3.4) K/uL [place] # (Auto) (0.11-0.59) K/uL Eos # (Auto) (0-0.5) K/uL Baso # (Auto) (0-0.2) K/uL Immature Gran # (Auto) (0.00-0.02) K/uL Platelet Estimate (Normal) RBC Morphology PT (9.0-12.0) Seconds INR (0.9-1.1) APTT (21.0-31.0) Seconds PTT Ratio Sodium (136-145) mmol/L Potassium (3.5-5.1) mmol/L Chloride (98-107) mmol/L Carbon Dioxide (21-32) mmol/L Anion Gap (3-11) BUN (7-18) mg/dl Creatinine (0.6-1.4) mg/dl Est Cr Clr Drug Dosing ml/min Est GFR ( Amer) Est GFR (Non-Af Amer) BUN/Creatinine Ratio (10-20) Glucose (70-99) mg/dl Lactate 5.0 H* 4.9 H* (0.4-2.0) mmol/L Calcium (8.5-10.1) mg/dl Magnesium (1.8-2.4) mg/dl Total Bilirubin (0.2-1) mg/dl AST (15-37) U/L ALT (12-78) U/L Alkaline Phosphatase (45-117) U/L Troponin I (0-0.045) ng/ml Total Protein (6.4-8.2) gm/dl Albumin (3.4-5.0) gm/dl Globulin (2.5-4.0) gm/dl Albumin/Globulin Ratio (0.9-2) Urine Color Urine Appearance (Clear) Urine pH (4.5-7.5) Ur Specific [place] (1.000-1.030) Urine Protein (Negative) Urine Glucose (UA) (Negative) Urine Ketones (Negative) Urine Blood (Negative) Urine Nitrite (Negative) Urine Bilirubin (Negative) Urine Urobilinogen (Negative) Ur Leukocyte Esterase (Negative) Urine WBC (Auto) (0-5) /hpf Urine RBC (Auto) (0-4) /hpf U Hyaline Cast (Auto) (0-5) /lpf U Epithel Cells (Auto) (0-5) /lpf Urine Bacteria (Auto) (Negative) Ur Renal Epithelial Cell Granular Casts (0) /lpf Urine Yeast COVID-19 Eval Order SARS-CoV-2 (PCR) (Negative) Influenza Type A (PCR) (Neg) Influenza Type B (PCR) (Neg) RSV (RT-PCR) (Neg) Imaging Data Attestation: I personally reviewed and interpreted this imaging study as follows: MDM Narrative Prior records/ancillary studies reviewed. Triage Nursing notes reviewed. The patient's history was concerning for flulike illness. Differential diagnosis: Etiologies such as sepsis, meningitis, Covid, UTI, pneumonia, metabolic, el ectrolyte abnormalities, cardiac sources, intracerebral event, toxicologic, neurologic, as well as others were entertained. Physical examination: As above. Pertinent findings were hypotensive and tachycardic. ER treatment provided: IV fluid resuscitation with Normal saline solution, 2000 mL bolus. Blood and urine cultures Antibiotics: Rocephin, vancomycin An order was placed for continuous cardiac monitoring. The monitor shows a rate of [] with a [] rhythm. On reassessment the patient vital signs improved. Diagnostics interpretation by me: ECG: Ordered for sepsis EKG: Normal sinus, normal intervals, no acute ST-T wave changes, rate of 116. Pression sinus tachycardia interpreted by myself I think arrhythmia is unlikely. EKG shows normal sinus rhythm with no interval abnormalities such as QT prolongation or WPW. There are no findings to suggest Brugada syndrome. Cardiac monitoring in the emergency department reveals no tachycardic or bradycardic dysrhythmia. Hypertrophic cardiomyopathy was considered but there are no clear historical elements pointing toward this. EKG is not suggestive. The QRS voltage is not extremely large and there are no suggestive Q waves. The labs revealed thrombocytopenia on CBC. Chemistry panel revealed elevated creatinine 1.55. LFTs revealed. Cardiac enzymes were elevated. Serum Lactate measurement was 5. Repeat is minimally lower Blood and urine cultures are pending. Imaging studies: Chest xray revealed with no acute consolidation, pneumothorax or free of mitral rotation Preliminary Findings Only See Final Report For Complete Findings CT ABDOMEN & PELVIS With Contrast: Comparison: 02/21/2007. Mild posterior dependent atelectasis, remainder of the lung bases are clear. Normal cardiac size. Diffuse fatty liver. Normal spleen, pancreas. Small nonobstructive stones within the lower pole the right kidney largest m easuring 3.2 mm. Nonobstructive stone within the middle pole of the left kidney measuring 7 mm. No hydronephrosis. 2 nodules within the right adrenal gland the one posteriorly measures 3.5 x 2.9 cm and the one located anteriorly measures 2.5 x 1.8 cm. Diffuse nonspecific enlargement of the right adrenal gland. Enlargement of the left adrenal gland with enlargement and hypoattenuated nodule within the medial limb of the left adrenal gland measuring 3.5 x 2.0 cm. This is stable or slightly increased in the interval. The adrenal glands are incompletely characterized by current exam and may be fur ther characterized with three-phase scan MRI or CT. Unremarkable stomach and small bowel. The colon is unremarkable with normal appendix. Normal urinary bladder. Normal size of prostate gland. Small fat-containing inguinal hernias. Degenerative disease of the spine. Radiologist: Josefina Kim MD CT HEAD: Comparison: 10/15/2020. No acute intracranial process, stable study in the interval. Radiologist: Josefina Kim MD Consultation: A consultation was placed with Dr. Viveros, hospitalist. The case was discussed and diagnostics were reviewed. The patient was evaluated in the ER for further treatment. Exam and history are concerning for sepsis with possible meningitis. Patient's platelet count was too low. LP was not performed because of this. He was immediately started on antibiotics upon initial evaluation. Covid test is positive. CT scans were reviewed. Patient is agreeable to treatment plan of admission. Blood pressure did come up with IV fluids. The chart was completed utilizing [employer] Speech voice recognition software. Grammatical errors, random word insertions, pronoun errors, and incomplete sentences are an occassional consequence of this system due to software limitations, ambient noise, and hardware issues. Any formal questions or concerns about the content, text, or information contained within the body of this dictation should be directly addressed to the physician special education teaching assistant for clarification. Impression & Plan Sepsis, COVID-19 Discharge Plan Visit Data Chief Complaint: Dental/Oral Stated Complaint: TOOTH PAIN ED Provider: Lina Zhang ED Midlevel Provider: Rosibel Short Discharge Problem: Sepsis, COVID-19 Patient Disposition: Admitted As Inpatient Condition: Fair Forms Stand Alone Forms: [employer] [facility] [employer] Prescriptions Prescriptions: No Action multivitamin with minerals [Men's One Daily] Tablet 1 tab PO DAILY RF: 0 glucosamine sulfate [Glucosamine] 500 mg Tablet 500 mg PO DAILY RF: 0 amoxicillin-pot clavulanate [Augmentin] 875-125 mg tablet 1 tab PO BID Qty: 14 RF: 0 Referrals Referrals: PCP,NO [Primary Care Provider] - Discharge Problem: Sepsis Qualifiers: Sepsis type: sepsis due to unspecified organism Sepsis acute organ dysfunction status: unspecified Qualified Code(s): A41.9 - Sepsis, unspecified organism
[2020-10-18 01:29] LABS: Basophils # (auto) 0.07 K/uL (0-0.2); Basophils % (auto) 1.5 %; Eosinophils # (auto) 0.01 K/uL (0-0.5); Eosinophils % (auto) 0.2 %; Immature Granulocytes # (auto) 0.03 K/uL (0.00-0.02); Immature Granulocytes % (auto) 0.6 %; Lymphocytes # (auto) 0.69 K/uL (1.2-3.4); Lymphocytes % (auto) 14.3 %; Monocytes # (auto) 0.27 K/uL (0.11-0.59); Monocytes % (auto) 5.6 %; Neutrophils # (auto) 3.75 K/uL (1.4-6.5); Neutrophils % (auto) 77.8 %; Platelet Estimate SIGNIFIC DECREASED (Normal); RBC Morphology Unremarkable
[2020-10-18 01:36] LABS: SARS CoV2 RNA(COVID-19) InHosp POSITIVE (Negative)
[2020-10-18] MEDS ORDERED: IOVERSOL 100ml IV ONE (01:56)
[2020-10-18] MEDS ORDERED: ACETAMINOPHEN 1,000 MG/100 ML VIAL IV STA (02:15)
[2020-10-18] MEDS ORDERED: SODIUM CHLORIDE 0.9% 1000ML 1,000 ML IV ONE (02:57)
--- NOTE | 2020-10-18 04:59 | History & Physical Report ---
Date of Service October 18, 2020 Assessment & Plan (1) Pneumonia due to COVID-19 virus: Pneumonia due to COVID-19 virus with hypoxia- Dexamethasone 6 mg IV every morning Remdesivir IV per protocol Ventolin HFA 2 puffs every 4 hours as needed Zinc sulfate 220 mg p.o. every morning Nasal cannula oxygen, titrate to keep pulse ox around 95%. Expect worsening due to obesity hypoventilation syndrome at nighttime Present on Admission?: Yes (2) Hypoxia: See above Present on Admission?: Yes (3) Non-STEMI (non-ST elevated myocardial infarction): The patient will be admitted to telemetry for serial cardiac enzymes, serial EKG's, cardiac rhythm monitoring. Additional concerns regarding possibility of endocarditis with antecedent dental infection. Vancomycin IV and ceftriaxone IV Cardiology consult Present on Admission?: Yes (4) Adrenal adenoma: Overall they appear stable compared to 2017. Present on Admission?: Yes (5) Acute kidney injury: Creatinine 1.55 upon admission, with range 0.98-1.19. Received 2 L normal saline in ED. Repeat laboratories in a.m. Present on Admission?: Yes (6) Hyponatremia: Check serum osmolality and urine osmolality. Received 2 L normal saline in the ED. Repeat laboratories in a.m. Present on Admission?: Yes (7) Pain, dental: Patient has been placed on Augmentin on 10/15/2020. Vancomycin IV and Zosyn IV to cover dental infection and possible endocarditis Present on Admission?: Yes History of Present Illness Chief Complaint: The patient presents to the emergency department with complaint of fevers, chills, generalized body aches and generalized weakness. Primary Care Provider: NO PCP The patient is a 49-year-old male with a past medical history including bilateral adrenal nodules, hepatic steatosis, hepatomegaly, diabetes mellitus, hydronephrosis with renal calculus obstruction at right UPJ, GERD and obesity. He was initially seen at the emergency department on 10/15/2020 for a possible dental infection and was discharged on Augmentin twice daily. He presents to the emergency department tonight with worsening generalized weakness and muscle aches, fevers and chills. Pertinent laboratories in the ED: Sodium 126, glucose 171, albumin 2.8, INR 1.3, creatinine 1.55, troponin 0 0.082 and COVID-19 positive Imaging studies: Chest x-ray with bilateral interstitial infiltrates CT head negative. CT of abdomen pelvis shows fatty liver, bilateral adrenal nodules. In the emergency department patient was given the following meds by the ED: Dexamethasone 10 mg IV, vancomycin IV, ceftriaxone 2 g IV, normal saline 2 L. Allergies Allergy/AdvReac Type Severity Reaction Status Date / Time No Known Allergies Allergy Mild Verified 10/18/20 01:21 Home Medications Medication Instructions Recorded Confirmed Type glucosamine sulfate [Glucosamine] 500 mg PO DAILY 02/09/20 10/18/20 History multivitamin with minerals [Men's 1 tab PO DAILY 02/09/20 10/18/20 History One Daily] amoxicillin-pot clavulanate 1 tab PO BID #14 tab 10/15/20 10/18/20 Rx [Augmentin] Past Med/Surg History Medical History (Updated 10/18/20 @ 04:54 by Dav Robertson MD) GERD (gastroesophageal reflux disease) History of kidney stones Obesity Sepsis Surgical History History of carpal tunnel surgery Social History Smoking Status: Never smoker Second Hand Exposure: No; Hx Alcohol Use: No Hx Substance Use: No Preferred Language: Indian Communication Ability: Effective Senior Business Intelligence Analyst Required: No Beliefs That Will Affect Care: None Current Living Situation: Spouse and Family Feels Safe at Home: Yes Assistive Devices: None Review of Systems Review of Systems: The patient denies chest pain, palpitations, lower extremity swelling, sweats, nausea, vomiting, diarrhea , constipation, abdominal pain, pelvic pain, blood in urine or stool, dysuria, urinary frequency or urgency, lightheadedness, dizziness, memory loss, loss of consciousness, rash, abnormal bruising or bleeding, imbalance, focal weakness, numbness or tingling in arms or legs, back or neck pain, or night sweats. The review of systems is otherwise negative other than for that already noted above, and at least 10 systems have been reviewed. Physical Exam Physical Exam: The patient is awake, alert and oriented 3, well developed and well nourished, normocephalic and atraumatic, lying in bed and in no acute distress. HEENT--PERRL, EOMI, mucous membranes and oropharynx dry. Neck--supple. No JVD. No bruits. Thyroid normal, trachea midline, no adenopathy. Heart--normal S1 and S2. No murmurs, rubs or gallops. Lungs--clear bilaterally, no respiratory distress, no accessory muscle use. Abdomen--normal bowel sounds and soft. Nontender. Nondistended. Morbidly obese Extremities--no cyanosis or clubbing. No edema. Dermatologic--normal skin turgor, normal color, no abnormal lymph nodes, no rash. Neurologic--cranial nerves II through XII grossly intact. Rheumatologic--normal range of motion. Psychiatric--normal affect. Results & Data Results & Data ([facility]) Vital Signs (Past 12 Hours) Vital Signs Temp Pulse Resp BP Pulse Ox 10/18/20 03:30 105 H 20 112/77 95 10/18/20 03:15 106 H 22 113/82 96 10/18/20 03:00 107 H 18 94/73 L 96 10/18/20 02:45 109 H 24 111/79 94 10/18/20 02:30 110 H 21 119/80 95 10/18/20 02:15 112 H 21 109/83 95 10/18/20 02:00 112 H 22 105/78 95 10/18/20 01:30 112 H 20 162/118 H 94 10/18/20 01:19 114 H 22 143/106 H 95 10/18/20 00:13 118 H 22 114/86 95 10/17/20 23:17 98.4 F 122 H 20 98/72 L 96 Laboratory Results Laboratory Results WBC 4.82 K/uL (4.8-10.8) 10/18/20 00:31 RBC 4.97 M/uL (4.7-6.1) 10/18/20 00:31 Hgb 15.3 g/dL (14.0-18.0) 10/18/20 00:31 Hct 42.5 % (42-52) 10/18/20 00:31 MCV 85.5 fL (80-100) 10/18/20 00:31 MCH 30.8 pg (25-34) 10/18/20 00:31 MCHC 36.0 g/dL (32-36) 10/18/20 00:31 RDW Std Deviation 41.4 fL (36.4-46.3) 10/18/20 00: RDW Coeff of Lara 13.1 % (11.5-14.5) 10/18/20 00: Plt Count 23 K/uL (130-400) L* 10/18/20 00: MPV 11.8 fL (7.4-10.4) H 10/18/20 00: Immature Gran % (Auto) 0.6 % 10/18/20 00: Neut % (Auto) 77.8 % 10/18/20 00: Lymph % (Auto) 14.3 % 10/18/20 00: [place] % (Auto) 5.6 % 10/18/20 00: Eos % (Auto) 0.2 % 10/18/20 00: Baso % (Auto) 1.5 % 10/18/20 00: Neut # (Auto) 3.75 K/uL (1.4-6.5) 10/18/20 00: Lymph # (Auto) 0.69 K/uL (1.2-3.4) L 10/18/20 00: [place] # (Auto) 0.27 K/uL (0.11-0.59) 10/18/20 00: Eos # (Auto) 0.01 K/uL (0-0.5) 10/18/20 00: Baso # (Auto) 0.07 K/uL (0-0.2) 10/18/20 00: Immature Gran # (Auto) 0.03 K/uL (0.00-0.02) H 10/18/20 00: Platelet Estimate SIGNIFIC DECREASED (Normal) 10/18/20 00: RBC Morphology Unremarkable 10/18/20 00: PT 13.2 Seconds (9.0-12.0) H 10/18/20 00: INR 1.3 (0.9-1.1) H 10/18/20: APTT 30.1 Seconds (21.0-31.0) 10/18/20 00: PTT Ratio 1.1 10/18/20 00: Sodium 126 mmol/L (136-145) L 10/18/20: Potassium 4.0 mmol/L (3.5-5.1) 10/18/20 00:31 Chloride 91 mmol/L (98-107) L 10/18/20 00:31 Carbon Dioxide 23 mmol/L (21-32) 10/18/20 00:31 Anion Gap 12.0 (3-11) H 10/18/20 00:31 BUN 29 mg/dl (7-18) H 10/18/20 00:31 Creatinine 1.55 mg/dl (0.6-1.4) H 10/18/20 00:31 Est Cr Clr Drug Dosing 73.6 ml/min 10/18/20 00:31 Est GFR ( Amer) 60.9 10/18/20 00:31 Est GFR (Non-Af Amer) 52.5 10/18/20 00:31 BUN/Creatinine Ratio 18.8 (10-20) 10/18/20 00:31 Glucose 171 mg/dl (70-99) H 10/18/20 00:31 Lactate 4.9 mmol/L (0.4-2.0) H* 10/18/20 02:21 Calcium 9.3 mg/dl (8.5-10.1) 10/18/20 00:31 Magnesium 1.8 mg/dl (1.8-2.4) 10/18/20 00:31 Total Bilirubin 0.8 mg/dl (0.2-1) 10/18/20 00:31 AST 38 U/L (15-37) H 10/18/20 00:31 ALT 34 U/L (12-78) 10/18/20 00:31 Alkaline Phosphatase 77 U/L (45-117) 10/18/20 00:31 Troponin I 0.082 ng/ml (0-0.045) H* 10/18/20 00:31 Total Protein 7.3 gm/dl (6.4-8.2) 10/18/20 00:31 Albumin 2.8 gm/dl (3.4-5.0) L 10/18/20 00:31 Globulin 4.5 gm/dl (2.5-4.0) H 10/18/20 00:31 Albumin/Globulin Ratio 0.6 (0.9-2) L 10/18/20 00:31 Urine Color Dark Yellow 10/18/20 00:11 Urine Appearance Cloudy (Clear) A 01/08/21 00:11 Urine pH 5.0 (4.5-7.5) 10/18/20 00:11 Ur Specific [place] 1.038 (1.000-1.030) H 10/18/20 00:11 Urine Protein 1+ (Negative) H 10/18/20 00:11 Urine Glucose (UA) Negative (Negative) 10/18/20 00:11 Urine Ketones Trace (Negative) H 10/18/20 00:11 Urine Blood Negative (Negative) 10/18/20 00:11 Urine Nitrite Positive (Negative) A 10/18/20 00:11 Urine Bilirubin 1+ (Negative) H 10/18/20 00:11 Urine Urobilinogen Negative (Negative) 10/18/20 00:11 Ur Leukocyte Esterase Trace (Negative) H 10/18/20 00:11 Urine WBC (Auto) 1-5 /hpf (0-5) 10/18/20 00:11 Urine RBC (Auto) 0-4 /hpf (0-4) 10/18/20 00:11 U Hyaline Cast (Auto) 10-30 /lpf (0-5) H 10/18/20 00:11 U Epithel Cells (Auto) >30 /lpf (0-5) H 10/18/20 00:11 Urine Bacteria (Auto) 1+ (Negative) H 10/18/20 00:11 Ur Renal Epithelial Cell Not Reportable 10/18/20 00:11 Granular Casts 10-20 /lpf (0) H 10/18/20 00:11 Urine Yeast Not Reportable 10/18/20 00:11 COVID-19 Eval Order [facility]Rsv at [facility] 10/18/20 00:02 SARS-CoV-2 (PCR) POSITIVE (Negative) A* 10/18/20 00:02 Influenza Type A (PCR) Negative (Neg) 10/18/20 00:02 Influenza Type B (PCR) Negative (Neg) 10/18/20 00:02 RSV (RT-PCR) Negative (Neg) 10/18/20 00:02 Diagnostic Findings [facility] Patient: CHERISE BLANTON (Male) : 74 Status: ER Date: 10/18/20 01:08 Room #: History: HEADACHE, ABSCESSED TOOTH ON RIGHT SIDE OF MOUTH, Slices: 66 Priors: Tech: Lucius Medel @ [phone] Exams: CT HEAD Contrast: Accession Numbers: [id number] Preliminary Findings Only See Final Report For Complete Findings CT HEAD: Comparison: 10/15/2020. No acute intracranial process, stable study in the interval. Radiologist: Josefina Kim MD Study ready at 01:10 and initial results transmitted at 01:15 *This report constitutes a preliminary interpretation only. Non-acute findings felt to be unrelated to the clinical presentation may not be discussed in this report. The study will be interpreted and a final report will be generated by the local Radiologist the following shift. To reach the hospital radiology department call [phone]. If a discrepancy is found between the preliminary and final interpretations of this study, please notify us via our Client Portal at [email or web address], under QA Exams.You can also fax this report with a description of the discrepancy, or include the final report, to our daytime fax number [phone].If faxing, please indicate the severity of discrepancy using one of the following categories: [ ] 1 - Agree/Informational [ ] 2 - Unlikely to Affect Management [ ] 3 - Possible Eventual Change of Management [ ] 4 - Probable Immediate Change of Management For all other patient related information, please fax us at [phone]. [id number] [facility] Patient: CHERISE BLANTON (Male) : 74 Status: ER Date: 10/18/20 01:55 Room #: History: SEPSIS, PATIENT STATES NO PAIN IN ABD Slices: 741 Priors: Tech: Lucius Medel @ [phone] Exams: CT ABDOMEN & PELVIS With Contrast Contrast: IV Amt: 93 ML OPTIRAY 320 Accession Numbers: [id number] Preliminary Findings Only See Final Report For Complete Findings CT ABDOMEN & PELVIS With Contrast: Comparison: 02/21/2007. Mild posterior dependent atelectasis, remainder of the lung bases are clear. Normal cardiac size. Diffuse fatty liver. Normal spleen, pancreas. Small nonobstructive stones within the lower pole the right kidney largest measuring 3.2 mm. Nonobstructive stone within the middle pole of the left kidney measuring 7 mm. No hydronephrosis. 2 nodules within the right adrenal gland the one posteriorly measures 3.5 x 2.9 cm and the one located anteriorly measures 2.5 x 1.8 cm. Diffuse nonspecific enlargement of the right adrenal gland. Enlargement of the left adrenal gland with enlargement and hypoattenuated nodule within the medial limb of the left adrenal gland measuring 3.5 x 2.0 cm. This is stable or slightly increased in the interval. The adrenal glands are incompletely characterized by current exam and may be further characterized with three-phase scan MRI or CT. Unremarkable stomach and small bowel. The colon is unremarkable with normal appendix. Normal urinary bladder. Normal size of prostate gland. Small fat-containing inguinal hernias. Degenerative disease of the spine. Radiologist: Josefina Kim MD Study ready at 02:03 and initial results transmitted at 02:18 *This report constitutes a preliminary interpretation only. Non-acute findings felt to be unrelated to the clinical presentation may not be discussed in this report. The study will be interpreted and a final report will be generated by the local Radiologist the following shift. To reach the hospital radiology department call [phone]. If a discrepancy is found between the preliminary and final interpretations of this study, please notify us via our Client Portal at [email or web address], under QA Exams.You can also fax this report with a description of the discrepancy, or include the final report, to our daytime fax number [phone].If faxing, please indicate the severity of discrepancy using one of the following categories: [ ] 1 - Agree/Informational [ ] 2 - Unlikely to Affect Management [ ] 3 - Possible Eventual Change of Management [ ] 4 - Probable Immediate Change of Management For all other patient related information, please fax us at [phone]. [id number] Code Status & VTE Plan Code Status Full code VTE Prophylaxis Plan VTE Prophylaxis will be ordered: Yes PG Care Time/CCT Total # of Minutes Spent Total Time Spent with Patient: Total time spent is greater than 50% in coordination of care (as documented) at patient's floor/unit and/or counseling patient: Coding Level of Care Code 76722 Initial Inpt Care Lvl 3 Diagnoses Pneumonia due to COVID-19 virus U07.1; J12.82 Hypoxia R09.02 Non-STEMI (non-ST elevated myocardial infarction) I21.4 Adrenal adenoma D35.00 Acute kidney injury N17.9 Hyponatremia E87.1 Pain, dental K08.89
[2020-10-18] MEDS ORDERED: REMDESIVIR 200 MG in SODIUM CHLORIDE 0.9% 210 ML IV ONE (05:30)
[2020-10-18] MEDS ORDERED: VANCOMYCIN HCL 1,000 MG in SODIUM CHLORIDE 0.9% 250 ML IV SCH (06:24)
[2020-10-18] MEDS ORDERED: ONDANSETRON INJ 2 MG/ML 2 ML VIAL IV PRN (06:24)
[2020-10-18] MEDS ORDERED: DEXTROSE 50% 50 ML SYRINGE IV PRN (06:24)
[2020-10-18] MEDS ORDERED: ACETAMINOPHEN 325 MG TAB PO PRN (06:24)
[2020-10-18] MEDS ORDERED: VANCOMYCIN CONSULT ACTIVE PRN (06:24)
[2020-10-18] MEDS ORDERED: CARBOHYDRATES FOR HYPOGLYCEMIA PO PRN (06:24)
[2020-10-18] MEDS ORDERED: GLUCOSE 10 TABS/TUBE PO PRN (06:24)
[2020-10-18] MEDS ORDERED: GLUCAGON FOR INJ 1 MG VIAL SQ PRN (06:24)
[2020-10-18] MEDS ORDERED: GLUCOSE 40% GEL 15 GM TUBE PO PRN (06:24)
[2020-10-18] MEDS ORDERED: ALBUTEROL HFA 8 GM INHALER INH PRN (06:24)
--- NOTE | 2020-10-18 06:39 | XRay Report ---
XR chest 1V portable HISTORY: 49 years-old Male SEPSIS acute sepsis COMPARISON: CT abdomen and pelvis 10/18/2020 TECHNIQUE: Portable AP view of the chest FINDINGS: Cardiac silhouette is enlarged. Reticular opacities of the lung bases. No pneumothorax, large pleural effusion, overt pulmonary edema or lobar airspace consolidation. Degenerative changes of the shoulde rs and spine. IMPRESSION: Cardiomegaly with mild bibasilar opacities suggestive of atelectasis. ACT 112: Negative or not required by law. The above report was generated using voice recognition software. It may contain grammatical, syntax o r spelling errors. Electronically signed by: Walker Deleon M.D. 10/18/2020 6:37 AM
--- NOTE | 2020-10-18 06:44 | CT Scan Report ---
CT head/brain wo con CLINICAL HISTORY: 49 years-old Male with KOENIG, neck stiff, fever, concerns meningitis. Acute headache with fever and meningitis TECHNIQUE: Multiple axial CT images of the head were obtained without contrast. A dose lowering tech nique was utilized adhering to the principles of ALARA. CT DOSE: 614.27 mGy.cm COMPARISON: Head CT 10/15/2020 FINDINGS: No acute intracranial hemorrhage, midline shift, intracranial mass, hydrocephalus, territorial ischem ia or abnormal extra-axial collection. The calvarium is intact. The paranasal sinuses, mastoid air cells, and middle ear cavities are clear . IMPRESSION: No acute intracranial abnormality. ACT 112: Negative or not required by law. The above report was generated using voice recognition software. It may contain grammatical, syntax o r spelling errors. Electronically signed by: Walker Deleon M.D. 10/18/2020 6:43 AM
[2020-10-18] MEDS ORDERED: VANCOMYCIN HCL 1,750 MG in SODIUM CHLORIDE 0.9% 500 ML IV SCH (07:30)
[2020-10-18] MEDS ORDERED: KETOROLAC TROMETHAMINE 15 MG/ML VIAL IV PRN (07:52)
--- NOTE | 2020-10-18 08:05 | CT Scan Report ---
ABDOMEN AND PELVIS CT WITH IV CONTRAST CT DOSE: 1704.02 mGy.cm HISTORY: Acute sepsis sepsis TECHNIQUE: Multiaxial CT images of the abdomen and pelvis were performed following the IV administrat ion of 93 cc of Optiray 320, A dose lowering technique was utilized adhering to the principles of AL GEORGE. COMPARISON STUDY: CT abdomen and pelvis and MRI of the abdomen 02/09/2020, CT abdomen 02/21/2007. FINDINGS: Mild dependent subsegmental bibasilar atelectasis. No pneumatosis or pneumoperitoneum. The imaged inferior cardiac chambers are unremarkable. The spleen is enlarged measuring 18.2 cm in length . Unremarkable pancreas and gallbladder. Hepatic steatosis. Patency of the hepatic and portal veins. Enlargement of the bilateral adrenal glands redemonstrated. 3.2 x 2.2 cm right adrenal gland lesion p reviously measured 3.2 x 1.6 cm. This may represent a lipid poor adenoma and previously measured 2.5 cm in 2006. 1.5 cm cyst of the left adrenal gland is unchanged. Mild nonspecific stranding adjacent t o the bilateral adrenal glands. There are 4 nonobstructing calculi noted within the right kidney measuring up to 7 mm within the infe rior pole. 7 mm nonobstructing calculus of the superior pole left kidney. Probable cyst of the superi or pole left kidney measures 7 mm. No ureteral calculi or obstructive uropathy. Unremarkable urinary bladder and prostate. Small fat filled bilateral inguinal hernias. Aorta and IVC are unremarkable. Th ere is no adenopathy. No bowel obstruction or bowel wall thickening. No ascites or mesenteric inflammation. Unremarkable ap pendix. Soft tissues are within normal limits. No acute fracture. Ossifications of the posterior long itudinal ligament noted at L1-L4 with associated posterior disc osteophyte complex formations. Probab le bone island of the right femoral head. IMPRESSION: 1. No bowel obstruction or bowel wall thickening. Normal appendix. 2. Nonobstructing bilateral nephrolithiasis. 3. Bilateral adrenal gland enlargement suggestive of hyperplasia. Mildly increased size of the right adrenal gland lesion now measuring 3.2 x 2.2 cm. This is progressively increased in size from 2006 an d favors a benign etiology such as a lipid poor adenoma. Unchanged left adrenal gland cyst. 4. Hepatic steatosis. 5. Splenomegaly. ACT 112: Negative or not required by law. The above report was generated using voice recognition software. It may contain grammatical, syntax o r spelling errors. Electronically signed by: Walker Deleon M.D. 10/18/2020 8:04 AM
[2020-10-18] MEDS ORDERED: ENOXAPARIN INJ 60 MG/0.6 ML SYR SQ SCH (09:00)
[2020-10-18] MEDS: INSULIN ASPART 100 UNITS/ML 3 ML PEN SC SCH ×4 (09:06→20:54)
[2020-10-18] MEDS: dexAMETHasone 6 MG in SYRINGE 0 ML IV SCH (09:07)
[2020-10-18 11:48] LABS: Hematocrit (blood only) 36.4 % (42-52); Mean Corpuscular Hemoglobin 30.8 pg (25-34); Mean Corpuscular Hgb Conc 35.7 g/dL (32-36); Mean Corpuscular Volume 86.3 fL (80-100); Mean Platelet Volume 12.7 fL (7.4-10.4); Platelet Count 22 K/uL (130-400); RDW Coefficient of Variation 13.5 % (11.5-14.5); RDW Standard Deviation 42.7 fL (36.4-46.3); Red Blood Count 4.22 M/uL (4.7-6.1); White Blood Count 4.43 K/uL (4.8-10.8)
--- NOTE | 2020-10-18 12:34 | History & Physical Bridge Note ---
Date of Service October 18, 2020 History & Physical Bridge Note I have examined the patient, reviewed the History & Physical and in the interval since the performance of the History & Physical I have noted the following changes of clinical significance: patient doing well this morning, only complaint is some diffuse muscle aches, joint aches noted that platelets are 23k on admission, down to 22k this morning Augmentin is new medication started on 10/15 for possible dental infection, possible adverse reaction to medication Hb is slightly low at 13 but no signs of hemolytic anemia could be due to COVID? will stop Lovenox at this time to reduce bleeding risk, Augmentin was stopped on admission consult hematology for their opinion and recommendation NAYELI: Cr was 1.55 on admission, hyponatremia, likely dehydrated with poor sodium intake will give NSS at 100cc/hr, repeat BMP in the morning COVID 19: no signs of serious pneumonia, stable on tele, breathing room air comfortably with saturations 95% will downgrade to medical floor, check labs tomorrow
[2020-10-18] MEDS: SODIUM CHLORIDE 0.9% 1000ML 1,000 ML IV SCH ×2 (13:21→22:36)
[2020-10-18] MEDS ORDERED: traMADol HCL 50 MG TABLET PO PRN (14:19)
--- NOTE | 2020-10-18 16:00 | Consultation ---
Date of Consultation October 18, 2020 Assessment & Plan (1) Thrombocytopenia: (This is a virtual consult without direct contact with patient due to COVID-19. I have reviewed his medical records including H&P, lab data and imaging studies) - most likely due to COVID-19 - lymphopenia and thrombocytopenia are associated with COVID-19 infection - hepatosplenomegaly and new drug exposure (Augmentin) can also contribute to thrombocytopenia - no schistocytes nor platelet clumps are seen on pb smear Recommendations - treat underlying condition and supportive care - transfuse platelet when platelet count is less than 12k; less than 20k if febrile; less than 50k if bleeding is present or pre-procedure - avoid anticoagulation, antiplatelet therapy if platelet count is less than 50k - dvt prophylaxis via sequential compression device - monitor hemolysis panel, fibrinogen, coags - also consider checking hepatitis panel, HIV Thank you for the courtesy of this consultation. Feel free to contact if any questions. Present on Admission?: Yes History of Present Illness Requesting Physician: Hugo Richardson DO Reason for Consultation: Thrombocytopenia Attending Physician: Hugo Richardson, History of Present Illness (This is a virtual consult without direct contact with patient due to COVID-19. I have reviewed his medical records including H&P, lab data and imaging studies) 49 y/o male with history of bilateral adrenal nodules, hepatic steatosis, hepatomegaly, diabetes mellitus, hydronephrosis with renal calculus obstruction at right UPJ, GERD and obesity who presented to the ED with complaint of fevers, chills, generalized body aches and generalized weakness. He was initially seen at the emergency department on 10/15/2020 for a possible dental infection and was discharged on Augmentin twice daily. Subsequently patient was diagnosed with bilateral pneumonia due to COVID-19. Hematology was consulted for marked thrombocytopenia (22k) on admission. No prior history of thrombocytopenia. CBC is notable for moderate lymphopenia and mild anemia. Coags are PTT 30.1 sec and INR 1.3. No apparent mucosal bleed or overt hemorrhage is reported. Allergies Allergy/AdvReac Type Severity Reaction Status Date / Time No Known Allergies Allergy Mild Verified 10/18/20 01:21 Home Medications Medication Instructions Recorded Confirmed Type glucosamine sulfate [Glucosamine] 500 mg PO DAILY 02/09/20 10/18/20 History multivitamin with minerals [Men's 1 tab PO DAILY 02/09/20 10/18/20 History One Daily] amoxicillin-pot clavulanate 1 tab PO BID #14 tab 10/15/20 10/18/20 Rx [Augmentin] Patient History Medical History (Updated 10/18/20 @ 16:13 by Tyshawn Carey MD) GERD (gastroesophageal reflux disease) History of kidney stones Obesity Sepsis Surgical History History of carpal tunnel surgery Social History Smoking Status: Never smoker Second Hand Exposure: No; Hx Alcohol Use: No Hx Substance Use: No Preferred Language: Maltese Communication Ability: Effective Audio Visual Director Required: No Beliefs That Will Affect Care: None Current Living Situation: Spouse Feels Safe at Home: Yes Assistive Devices: None Review of Systems Review of Systems: Other (I was unable to see the patient due to lack of N95 fitting test and patient being COVID-19 positive.) Physical Exam Physical Exam: I was unable to see the patient due to lack of N95 fitting test and patient being COVID-19 positive. Results & Data ([facility]) Vital Signs (Past 12 Hours) Vital Signs Temp Pulse Pulse Pulse Resp BP BP 10/18/20 15:18 37.1 C 103 H 18 107/72 10/18/20 14:20 37.8 C H 99 H 16 98/63 L 10/18/20 11:50 36.9 C 98 H 24 107/68 10/18/20 07:51 37.4 C 102 H 20 107/69 10/18/20 06:28 37.5 C 105 H 16 110/75 10/18/20 05:30 101 H 22 108/82 10/18/20 05:15 102 H 22 145/97 H 10/18/20 04:46 103 H 18 139/94 10/18/20 04:30 103 H 20 114/86 10/18/20 04:15 104 H 20 131/78 10/18/20 04:00 100 H 24 130/79 Pulse Ox 10/18/20 15:18 93 10/18/20 14:20 94 10/18/20 11:50 95 10/18/20 07:51 91 10/18/20 06:28 95 10/18/20 05:30 99 10/18/20 05:15 98 10/18/20 04:46 96 10/18/20 04:30 100 10/18/20 04:15 97 10/18/20 04:00 96 Laboratory Results Laboratory Results WBC 4.82 K/uL (4.8-10.8) 10/18/20 00:31 RBC 4.97 M/uL (4.7-6.1) 10/18/20 00:31 Hgb 15.3 g/dL (14.0-18.0) 10/18/20 00:31 Hct 42.5 % (42-52) 10/18/20 00:31 MCV 85.5 fL (80-100) 10/18/20 00:31 MCH 30.8 pg (25-34) 10/18/20 00:31 MCHC 36.0 g/dL (32-36) 10/18/20 00:31 RDW Std Deviation 41.4 fL (36.4-46.3) 10/18/20 00: RDW Coeff of Lara 13.1 % (11.5-14.5) 10/18/20 00:31 Plt Count 23 K/uL (130-400) L* 10/18/20 00:31 MPV 11.8 fL (7.4-10.4) H 10/18/20 00:31 Immature Gran % (Auto) 0.6 % 10/18/20 00:31 Neut % (Auto) 77.8 % 10/18/20 00:31 Lymph % (Auto) 14.3 % 10/18/20 00:31 [place] % (Auto) 5.6 % 10/18/20 00:31 Eos % (Auto) 0.2 % 10/18/20 00:31 Baso % (Auto) 1.5 % 10/18/20 00:31 Neut # (Auto) 3.75 K/uL (1.4-6.5) 10/18/20 00:31 Lymph # (Auto) 0.69 K/uL (1.2-3.4) L 10/18/20 00:31 [place] # (Auto) 0.27 K/uL (0.11-0.59) 10/18/20 00:31 Eos # (Auto) 0.01 K/uL (0-0.5) 10/18/20 00:31 Baso # (Auto) 0.07 K/uL (0-0.2) 10/18/20 00:31 Immature Gran # (Auto) 0.03 K/uL (0.00-0.02) H 10/18/20 00:31 Platelet Estimate SIGNIFIC DECREASED (Normal) 10/18/20 00:31 RBC Morphology Unremarkable 10/18/20 00: PT 13.2 Seconds (9.0-12.0) H 10/18/20 00:31 INR 1.3 (0.9-1.1) H 10/18/20 00:31 APTT 30.1 Seconds (21.0-31.0) 10/18/20 00: PTT Ratio 1.1 10/18/20 00:31 Sodium 126 mmol/L (136-145) L 10/18/20 00:31 Potassium 4.0 mmol/L (3.5-5.1) 10/18/20 00: Chloride 91 mmol/L (98-107) L 10/18/20 00:31 Carbon Dioxide 23 mmol/L (21-32) 10/18/20 00:31 Anion Gap 12.0 (3-11) H 10/18/20 00:31 BUN 29 mg/dl (7-18) H 10/18/20 00:31 Creatinine 1.55 mg/dl (0.6-1.4) H 10/18/20 00:31 Est Cr Clr Drug Dosing 73.6 ml/min 10/18/20 00:31 Est GFR ( Amer) 60.9 10/18/20 00:31 Est GFR (Non-Af Amer) 52.5 10/18/20 00:31 BUN/Creatinine Ratio 18.8 (10-20) 10/18/20 00:31 Glucose 171 mg/dl (70-99) H 10/18/20 00:31 Lactate 4.9 mmol/L (0.4-2.0) H* 10/18/20 02:21 Calcium 9.3 mg/dl (8.5-10.1) 10/18/20 00:31 Magnesium 1.8 mg/dl (1.8-2.4) 10/18/20 00:31 Total Bilirubin 0.8 mg/dl (0.2-1) 10/18/20 00:31 AST 38 U/L (15-37) H 10/18/20 00:31 ALT 34 U/L (12-78) 10/18/20 00:31 Alkaline Phosphatase 77 U/L (45-117) 10/18/20 00:31 Troponin I 0.082 ng/ml (0-0.045) H* 10/18/20 00:31 Total Protein 7.3 gm/dl (6.4-8.2) 10/18/20 00: Albumin 2.8 gm/dl (3.4-5.0) L 10/18/20 00: Globulin 4.5 gm/dl (2.5-4.0) H 10/18/20 00:31 Albumin/Globulin Ratio 0.6 (0.9-2) L 10/18/20 00:31 Urine Color Dark Yellow 10/18/20 00:11 Urine Appearance Cloudy (Clear) A 10/18/20 00:11 Urine pH 5.0 (4.5-7.5) 10/18/20 00:11 Ur Specific [place] 1.038 (1.000-1.030) H 10/18/20 00:11 Urine Protein 1+ (Negative) H 10/18/20 00:11 Urine Glucose (UA) Negative (Negative) 10/18/20 00:11 Urine Ketones Trace (Negative) H 10/18/20 00:11 Urine Blood Negative (Negative) 10/18/20 00:11 Urine Nitrite Positive (Negative) A 10/18/20 00:11 Urine Bilirubin 1+ (Negative) H 10/18/20 00:11 Urine Urobilinogen Negative (Negative) 10/18/20 00:11 Ur Leukocyte Esterase Trace (Negative) H 10/18/20 00:11 Urine WBC (Auto) 1-5 /hpf (0-5) 10/18/20 00:11 Urine RBC (Auto) 0-4 /hpf (0-4) 10/18/20 00:11 U Hyaline Cast (Auto) 10-30 /lpf (0-5) H 10/18/20 00:11 U Epithel Cells (Auto) >30 /lpf (0-5) H 10/18/20 00:11 Urine Bacteria (Auto) 1+ (Negative) H 10/18/20 00:11 Ur Renal Epithelial Cell Not Reportable 10/18/20 00:11 Granular Casts 10-20 /lpf (0) H 10/18/20 00:11 Urine Yeast Not Reportable 10/18/20 00:11 COVID-19 Eval Order CovFluRsv at [facility] 10/18/20 00:02 SARS-CoV-2 (PCR) POSITIVE (Negative) A* 10/18/20 00:02 Influenza Type A (PCR) Negative (Neg) 10/18/20 00:02 Influenza Type B (PCR) Negative (Neg) 10/18/20 00:02 RSV (RT-PCR) Negative (Neg) 10/18/20 00:[address] ABDOMEN & PELVIS 10/18/20 IMPRESSION: 1. No bowel obstruction or bowel wall thickening. Normal appendix. 2. Nonobstructing bilateral nephrolithiasis. 3. Bilateral adrenal gland enlargement suggestive of hyperplasia. Mildly increased size of the right adrenal gland lesion now measuring 3.2 x 2.2 cm. This is progressively increased in size from 2006 and favors a benign etiology s uch as a lipid poor adenoma. Unchanged left adrenal gland cyst. 4. Hepatic steatosis. 5. Splenomegaly.
[2020-10-18 18:09] LABS: Fibrinogen > 860 mg/dl (184-400)
[2020-10-18] MEDS ORDERED: cefTRIAXone SODIUM 2,000 MG in DEXTROSE 5% 50 ML IV SCH (21:00)
[2020-10-19] MEDS ORDERED: CALCIUM CARBONATE 500 MG CHEWABLE TAB PO PRN (05:33)
[2020-10-19 06:58] LABS: Estimated Average Glucose 154 mg/dl
[2020-10-19 07:09] LABS: Hematocrit (blood only) 35.4 % (42-52); Hemoglobin 12.5 g/dL (14.0-18.0); Mean Corpuscular Hemoglobin 30.6 pg (25-34); Mean Corpuscular Hgb Conc 35.3 g/dL (32-36); Mean Corpuscular Volume 86.6 fL (80-100); Mean Platelet Volume 10.7 fL (7.4-10.4); Platelet Count 48 K/uL (130-400); RDW Coefficient of Variation 13.8 % (11.5-14.5); RDW Standard Deviation 43.9 fL (36.4-46.3); Red Blood Count 4.09 M/uL (4.7-6.1)
[2020-10-19 07:10] LABS: Basophils # (auto) 0.03 K/uL (0-0.2); Basophils % (auto) 0.9 %; Eosinophils # (auto) 0.01 K/uL (0-0.5); Eosinophils % (auto) 0.3 %; Immature Granulocytes # (auto) 0.03 K/uL (0.00-0.02); Immature Granulocytes % (auto) 0.9 %; Lymphocytes # (auto) 0.46 K/uL (1.2-3.4); Lymphocytes % (auto) 13.9 %; Monocytes # (auto) 0.47 K/uL (0.11-0.59); Monocytes % (auto) 14.2 %; Neutrophils % (auto) 69.8 %; Platelet Estimate Decreased (Normal); Reticulocyte % < 0.5 % (0.5-2.0); Reticulocytes # 0.02 10^6/uL (0.02-0.10)
[2020-10-19 07:18] LABS: Albumin Globulin Ratio 0.5 (0.9-2); Albumin Level 2.3 gm/dl (3.4-5.0); BUN Creatinine Ratio 26.9 (10-20); Bilirubin,Total 0.4 mg/dl (0.2-1); Calcium 8.5 mg/dl (8.5-10.1); Creatinine Clr Calc Pharmacy 137.9 ml/min; Est GFR (African American) 120.8; Est GFR (Non-African American) 104.3; Globulin 4.4 gm/dl (2.5-4.0); Magnesium 2.6 mg/dl (1.8-2.4); Potassium 4.5 mmol/L (3.5-5.1); Total Protein 6.7 gm/dl (6.4-8.2)
[2020-10-19] MEDS: INSULIN ASPART 100 UNITS/ML 3 ML PEN SC SCH ×2 (08:33→12:24)
[2020-10-19] MEDS: SODIUM CHLORIDE 0.9% 1000ML 1,000 ML IV SCH (08:34)
[2020-10-19] MEDS: dexAMETHasone 6 MG in SYRINGE 0 ML IV SCH (08:34)
--- NOTE | 2020-10-19 11:16 | Electrocardiogram Report ---
Test Reason : Blood Pressure : / mmHG Vent. Rate : 116 BPM Atrial Rate : 116 BPM P-R Int : 152 ms QRS Dur : 088 ms QT Int : 308 ms P-R-T Axes : 035 006 076 degrees QTc Int : 428 ms Sinus tachycardia Otherwise normal ECG When compared with ECG of 28-FEB-2019 07:27, No significant change was found Confirmed by Sai Belcher ([id number]) on 10/19/2020 11:16:27 AM Referred By: REFERRED SELF Confirmed By:Nahum Belcher
[2020-10-19] MEDS ORDERED: REMDESIVIR 100 MG in SODIUM CHLORIDE 0.9% 230 ML IV SCH (12:00)
[2020-10-19] MEDS ORDERED: SODIUM CHLORIDE 0.9% 10ML FLUSH IV SCH (12:00)
--- NOTE | 2020-10-19 12:11 | Discharge Summary ---
Date of Service October 19, 2020 Admission HPI Per Admitting Provider The patient is a 49-year-old male with a past medical history including bilateral adrenal nodules, hepatic steatosis, hepatomegaly, diabetes mellitus, hydronephrosis with renal calculus obstruction at right UPJ, GERD and obesity. He was initially seen at the emergency department on 10/15/2020 for a possible dental infection and was discharged on Augmentin twice daily. He presents to the emergency department tonight with worsening generalized weakness and muscle aches, fevers and chills. Pertinent laboratories in the ED: Sodium 126, glucose 171, albumin 2.8, INR 1.3, creatinine 1.55, troponin 0 0.082 and COVID-19 positive Imaging studies: Chest x-ray with bilateral interstitial infiltrates CT head negative. CT of abdomen pelvis shows fatty liver, bilateral adrenal nodules. In the emergency department patient was given the following meds by the ED: Dexamethasone 10 mg IV, vancomycin IV, ceftriaxone 2 g IV, normal saline 2 L. Principal Diagnosis COVID 19 infection with thrombocytopenia Discharge Exam Constitutional well developed, + obese and comfortable; no acute distress ENMT Mouth: + dental caries (no signs of abscess, specifically right upper jaw) and + poor dentition Neck trachea midline, no thyromegaly Respiratory normal respiratory effort, lungs clear to auscultation Cardiovascular RRR, no murmur, no edema Gastrointestinal (Abdomen) normal bowel sounds, soft, nontender, no hepatosplenomegaly Musculoskeletal no cyanosis or clubbing, extremities motor strength 5/5 Skin no rashes, warm and dry Neurologic patellar DTR's 2+ bilat, sensation intact and PERRL, EOMI, accommodation nl, no face palsy, no dysarthria Psychiatric A+Ox3, euthymic affect Lymphatic no cervical or axillary lymphadenopathy Discharge Data Allergies Allergy/AdvReac Type Severity Reaction Status Date / Time No Known Allergies Allergy Mild Verified 10/18/20 01:21 Consultations 10/18/20 02:42 ED Decision to Admit Stat 10/18/20 06:24 Consult Case Management - Discharge Planning Routine 10/18/20 12:14 Consult Hematology Routine Ordered Studies 10/17/20 23:47 CT head/brain wo con Urgent 10/18/20 01:29 CT abd pelvis IV con only Urgent Hospital Course (1) Thrombocytopenia: quite low at 22k on admission, previous values as outpatient had been normal improved to 48k in 24 hours he was started on Augmentin on 10/15 which could have contributed to drop in counts, this was stopped appreciate hematology consult, most logical explanation would be COVID 19 infection will be self limiting, already going up will get a CBC next week with results to hematology, he does not have a PCP (2) Acute kidney injury: Creatinine 1.55 upon admission, with range 0.98-1.19. Received 2 L normal saline in ED and continued maintenance fluids due to not drinking well prior to admission Cr down to baseline now, he is feeling much better, making urine (3) Hyponatremia: hypovolemic hyponatremia, due to poor solute intake, dehydration resolved with NSS administration (4) Adrenal adenoma: Overall they appear stable compared to 2017. (5) Pain, dental: Patient has been placed on Augmentin on 10/15/2020. this could have contributed to thrombocytopenia no evidence of tooth abscess, no swelling, no drainage visualized from affected area with pressure on cheek pain is much better will give script for Clindamycin 300mg q6 to fill IF the tooth pain gets worse, fevers develop recommend he follow up with dentist (6) COVID-19: + test, no evidence of pneumonia, no hypoxia entire visit and breathing comfortably likely 7-10 days out from symptoms instructed to remain isolated until 10/25 he can return to work on 10/28, note provided stay well rested, well nourished, well hydrated Total Time Total Time Spent Total Time Spent (In Minutes): 35 minutes Total Time Includes: Examination of the Patient, Discharge Planning and Medication Reconciliation Discharge Plan Discharge Items Patient Disposition: Home - Self-Care Reason For Visit: COVID 19 infection, thrombocytopenia Discharge Diagnosis: COVID 19 infection Thrombocytopenia Acute kidney injury due to dehydration Condition on Discharge: Good Goals: stay well rested, well nourished, well hydrated Activity: Resume your previous activity Weightbearing: Full weightbearing Non-emergency contact: Primary Care Provider Call non-emergency contact if: you have any medication questions, your symptoms worsen and you have a fever Follow-up/Referrals: PCP,NO [Primary Care Provider] - Diet: Regular Ambulatory Orders: Complete Blood Count no Diff (Routine) Timeframe: 5 Days Location: Determined by Patient Ordered By: Hugo Franco Attending Provider Instructions: Medications: - DEXAMETHASONE: 6mg daily for 4 more days, start taking tomorrow morning - CLINDAMYCIN: 300mg every 6 hours, would ONLY start this if your tooth starts to hurt worse and you have fevers with the tooth pain - AUGMENTIN: do not take this any more COVID 19 infection: symptoms likely started on Wednesday10/14/20 no hypoxia (low oxygen) while you were here, no changes on chest x-ray to suggest a pneumonia finish 4 days of dexamethasone then stop you can use Tylenol 650mg every 6 hours and/or Motrin 400mg every 6 hours as needed for aches/pains/fever you will need to remain in quarantine until at least 10/25/20, to be safe you can return to work on 10/28/20 see note that is attached if you have other family members who do NOT have COVID 19 then you should stay isolated in a bedroom until 10/24/20 wear a mask when you leave your room Thrombocytopenia: low platelets this is most likely due to COVID 19 infection, could have been worsened by augmentin use platelets were 22 thousand, now up to 48 thousand, should recover fully as your body clears the virus recommend you get repeat CBC next week, lab script provided, can go anywhere Acute kidney injury, low sodium due to dehydration, treated with IV fluids yesterday and this morning stay well hydrated and well nourished renal function back to baseline on lab work today, sodium normal as well Tooth pain: on exam I do not see any evidence of abscess if your pain gets worse, experience swelling, fever then start on Clindamycin immediately recommend good oral hygiene, brush teeth twice a day, rinse with mouth wash twice a day follow up with dentist for continued issues Pending Studies at Discharge: No Stand-Alone Forms: My [facility], Work/School Release (Inpt) Medications and DC Order Prescriptions: New dexamethasone 4 mg tablet 6 mg PO DAILY 4 Days Qty: 6 RF: 0 clindamycin HCl 300 mg capsule 300 mg PO Q6H 7 Days Qty: 28 RF: 0 Continued multivitamin with minerals [Men's One Daily] Tablet 1 tab PO DAILY RF: 0 glucosamine sulfate [Glucosamine] 500 mg Tablet 500 mg PO DAILY RF: 0 Discontinued amoxicillin-pot clavulanate [Augmentin] 875-125 mg tablet 1 tab PO BID Qty: 14 RF: 0 Discharge Orders: Discharge Order (Routine); Ordered 10/19/20 Ordered By: Hugo Cannon/Other Patient Handouts: Thrombocytopenia, COVID-19 Prevention, Preventing the Spread of ..., Disinfecting Your Home of COVID-19, Simple Ways to Avoid COVID-19 Admission Data Admit Date/Time: 10/18/20 04:30 Attending Provider: Hugo Richardson Admit Provider: Dav Robertson Primary Care Provider: PCP,NO Other Providers: Dav Robertson ; Axel Reinoso V. Other Interventions: Discharge Summary Assessment (RN) Last Done: 10/19/20 12:13 Coding Level of Care Code D/C Day Management >30 mins Diagnoses Thrombocytopenia D69.6 Acute kidney injury N17.9 Hyponatremia E87.1 Adrenal adenoma D35.00 Pain, dental K08.89 COVID-19 U07.1
== END 2020-10-19 13:12 | disposition home or self-care (01) | DRG 177 ==
LOC: ED 23:13 → 2E 10-18 04:30 → SUATTDRO 10-18 04:30 → 2E 10-18 05:50 → 3E 10-18 12:34